=== PATIENT | female | born 1945 | race Two or more races ===

== ENCOUNTER 2024-11-14 13:59 | Emergency (ER) | payer OTHER ==
[~2024-11-14] VITALS: Ht 162.6 cm; Wt 59.0 kg
--- NOTE | 2024-11-14 15:46 | DVH ---
CLINICAL INDICATION: FALL TECHNIQUE: 3 v XY R KNEE 3V XRAY Comparison: None FINDINGS/IMPRESSION: : Orthopedic hardware is intact. No acute changes. Severe vascular calcification. Chondrocalcinosis lois barron IMPRESSION: 1. No acute changes
[2024-11-14 16:03] VITALS: BP 128/67; PULSE 73; RESP 24; TEMP 98; O2SAT 95
--- NOTE | 2024-11-14 16:07 | ED.PDOC ---
Musculoskeletal HPI Comments A 79 YEAR OLD FEMALE PRESENTS TO THE ED WITH COMPLAINT OF RIGHT KNEE PAIN STATUS POST FALL. PATIENT STATES SHE ACCIDENTALLY SLIPPED AND FELL AND HIT HER RIGHT KNEE ON THE GROUND YESTERDAY. PATIENT REPORTS SHE IS NOW EXPERIENCING RIGHT KNEE PAIN THAT IS WORSE WITH MOVEMENT. PATIENT DENIES INJURY, NECK INJURY, LOC, FEVER, CHILLS, SHORTNESS OF BREATH, CHEST PAIN, ABDOMINAL PAIN, NAUSEA, VOMITING, HEADACHE, OR OTHER COMPLAINTS. NO OTHER SYMPTOMS OR MODIFYING FACTORS AT THIS TIME. PATIENT IS ALERT, ORIENTED X 4, AND HAS STEADY GAIT. Chief Complaint: Lower Extremity Time Seen by MD: 15:02 Reviewed Notes: Nurses Notes, Medications, Allergies Home Meds Active Scripts Acetaminophen (Tylenol 8 Hour Arthritis) 650 Mg Tab, 650 MG PO TID, #30 TAB Prov:SARBJIT CRANE 11/14/24 Information Source: Patient Mode of Arrival: EMS Location: Right Extremity Location: Knee Timing: Days Prehospital treatment: None Severity: Moderate Bear Weight: Fully Pain: Moderate Mechanism: Blunt Trauma Circumstances: Fall Onset of Symptoms: After Trauma Symptoms: Pain DVT Risk Factors: NONE Last Tetanus: Unknown Associated signs and symptoms: Knee pain Past Medical History PAST MEDICAL HISTORY: Anxiety, DM, High Lipids, HTN Surgical History: Denies all surgeries 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 Family History Family History: Reviewed,noncontributory to illness Social History Smoker: Non-Smoker Alcohol: Denies ETOH Use Drugs: Denies Drug Use Lives In: Home Constitutional: reports: others (ANXIOUS ); denies: chills, diaphoresis, fatigue, fever, malaise, sweats, weakness EENTM: denies: blurred vision, double vision, ear bleeding, ear discharge, ear drainage, ear pain, ear ringing, eye pain, eye redness, hearing loss, mouth pain, mouth swelling, nasal discharge, nose bleeding, nose congestion, nose pain, photophobia, tearing, throat pain, throat swelling, voice changes, others Respiratory: denies: cough, hemoptysis, orthopnea, SOB at rest, shortness of breath, SOB with excertion, stridor, wheezing, others Cardiovascular: denies: chest pain, dizzy spells, diaphoresis, Dyspnea on exertion, edema, irregular heart beat, left arm pain, lightheadedness, palpitations, PND, syncope, others Gastrointestinal: denies: abdomen distended, abdominal pain, blood streaked bowels, constipated, diarrhea, dysphagia, difficulty swallowing, hematemesis, melena, nausea, poor appetite, poor fluid intake, rectal bleeding, rectal pain, vomiting, others Genitourinary: denies: abnormal vagina bleeding, burning, dyspareunia, dysuria, flank pain, frequency, hematuria, incontinence, pain, , vagina discharge, urgency, others Neurological: denies: dizziness, fainting, headache, left sided numbness, left sided weakness, numbness, paresthesia, pre-existing deficit, right sided numbness, right sided weakness, seizure, speech problems, tingling, tremors, weakness, others Musculoskeletal: reports: joint pain, joint swelling, others (RIGHT KNEE PAIN); denies: back pain, gout, muscle pain, muscle stiffness, neck pain Integumetry: denies: bruises, change in color, change in hair/nails, dryness, laceration, lesions, lumps, rash, wounds, others Allergic/Immunocompromised: denies: Difficulty Healing, Frequent Infections, Hives, Itching, others Hematologic/Lymphatic: denies: anemia, blood clots, easy bleeding, easy bruising, swollen glands, others Endocrine: denies: excessive hunger, excessive sweating, excessive thirst, excessive urination, flushing, intolerance to cold, intolerance to heat, unexplained weight gain, unexplained weight loss, others Psychiatric: denies: anxiety, bipolar disorder, depression, hopeless, panic disorder, schizophrenia, sleepless, suicidal, others All Other Systems: Reviewed and Negative Physical Exam General Appearance: No Apparent Distress, Normal, Other (ANXIOUS ) HEENT: Normal ENT Inspection, Pharynx Normal, TMs Normal Neck: Full Range of Motion, Non-Tender, Normal, Normal Inspection Respiratory: Chest Non-Tender, Lungs Clear, No Accessory Muscle Use, No Respiratory Distress, Normal Breath Sounds Cardiovascular: No Edema, No JVD, No Murmur, No Gallop, Normal Peripheral Pulses, Regular Rate/Rhythm Breast Exam: Deferred Gastrointestinal: No Organomegaly, Non Tender, No Pulsatile Mass, Normal Bowel Sounds, Soft Genitalia: Deferred Pelvic: Deferred Rectal: Deferred Extremities: Decreased range of motion, No calf tenderness, Normal capillary refill, No pedal edema, Tender (AND MILD SWELLING ON RIGHT LATERAL KNEE, NO BONY TENDERNESS AND DEFORMITY. ) Musculoskeletal : Apperance: Normal Neurologic: Alert, manager portable II-XII nml as Tested, No Motor Deficits, Normal Affect, Normal Mood, No Sensory Deficits Cerebellar Function: Normal Reflexes: Normal Skin: Dry, Normal Color, Warm Peripheral Pulses: 2+ carotid (R), 2+ carotid (L), 2+ dorsalis pedis (R), 2+ dorsalis pedis (L) Lymphatic: No Adenopathy Was a procedure done? Was a procedure done?: No Differential Diagnosis EXT Differential Diagnosis: Fracture, Sprain, Dislocation, DJD, Contusion, Strain, Arthritis, Bursitis X-Ray, Labs, Meds, VS Vital Signs Date Time Temp Pulse Resp B/P (MAP) Pulse Ox O2 Delivery O2 Flow Rate FiO2 11/14/24 16:03 98.0 73 24 128/67 (87) 95 98.0 11/14/24 16:03 73 24 95 Room Air 11/14/24 14:31 98.0 73 24 128/67 (87) 95 Current Medications Medications (Trade) Dose Ordered Sig/Gregg Route Start Time Stop Time Status Last Admin Acetaminophen/ Hydrocodone Bitart ([place] 5/325MG Tab) 1 tab ONCE ONCE PO 11/14/24 16:30 11/14/24 16:31 DC 11/14/24 16:30 CLINICAL INDICATION: FALL TECHNIQUE: 3 v XY R KNEE 3V XRAY Comparison: None FINDINGS/IMPRESSION: : Orthopedic hardware is intact. No acute changes. Severe vascular calcification. Chondrocalcinosis laterally IMPRESSION: 1. No acute changes ATED BY: JOSE SOFIA MD DICTATED DATE/TIME: 11/14/24 154 SIGNED BY: JOSE SOFIA MD SIGNED DATE/TIME: 11/14/241542 CC: X-Ray, Labs, Meds, VS Comment EXTERNAL MEDICAL RECORDS REVIEWED: [NONE] INDEPENDENT HISTORIANS: [NONE] SOCIAL DETERMINANTS OF HEALTH: [NONE] LABS ORDERED: NONE REVIEWED AND INTERPRETED RESULTS: NONE IMAGING ORDERED: XR KNEE RT TREATMENTS ORDERED: TYLENOL 1G PO, ALPHONSO WRAP APPLIED TO PATIENT'S RIGHT KNEE PROCEDURES PERFORMED: NONE CRITICAL CARE TIME: NONE I HAVE DISCUSSED THE PATIENT WITH THE ATTENDING PHYSICIAN DR. SNYDER AND HE AGREES WITH THE PATIENT'S PLAN OF CARE AND DISPOSITION. BASED ON HISTORY OF PRESENT ILLNESS, AND PHYSICAL EXAM, PATIENT WILL BE DISCHARGED HOME. DISCUSSED PLAN FOR DISCHARGE HOME WITH RX [TYLENOL]. MEDICATION WARNINGS GIVEN. SHARED DECISION MAKING: PATIENT INSTRUCTED TO FOLLOW UP WITH PRIMARY CARE PROVIDER IN 1-2 DAYS FOR RE-EVALUATION OF SYMPTOMS. PATIENT VERBALIZES UNDERSTANDING TO RETURN TO ED FOR NEW OR WORSENING SYMPTOMS OR IF FOLLOW UP WITH PCP CANNOT BE OBTAINED. PATIENT FEELS COMFORTABLE GOING HOME AT THIS TIME. ALL QUESTIONS ADDRESSED AT TIME OF DISCHARGE. Images Reviewed?: Images reviewed and evaluated by me Time of 1ST Reevaluation: 16:44 Reevaluation 1ST: Improved Patient Education/Counseling: Diagnosis, Treatment, Need For Follow Up Family Education/Counseling: Diagnosis, Treatment, Need For Follow Up Medical Screening: No EMC Exist At This Time Departure 1 Departure Time of Disposition: 16:44 Impression: Primary Impression: Sprain of right knee Qualified Codes: S83.8X1A - Sprain of other specified parts of right knee, initial encounter Additional Impressions: Chondrocalcinosis of right knee Status post fall Disposition: 01 HOME / SELF CARE / HOMELESS Condition: Stable Additional Instructions: FOLLOW-UP WITH PCP IN 1 TO 2 DAYS FOR MRI STUDY. TAKE MEDICATIONS PRESCRIBED. RETURN TO ED FOR ANY NEW OR WORSENING SYMPTOMS. e-Prescriptions Acetaminophen (Tylenol 8 Hour Arthritis) 650 Mg Tab 650 MG PO TID, #30 TAB Prov: SARBJIT CRANE 11/14/24 Discharged With: Self, Relative Critical Care Note Critical Care Time?: No Stability Stability form required: No I personally scribed for SARBJIT CRANE ([email or web address]) on 11/14/24 at 16:07. Electronically submitted by Ben Lee (ULI). I personally scribed for SARBJIT CRANE ([email or web address]) on 11/14/24 at 16:33. Electronically submitted by Ben Lee (ULI). SARBJIT CRANE Nov 14, 2024 16:07
[2024-11-14] MEDS: HYDROcodone-ACET 5/325MG TAB PO ONE (16:30)
[2024-11-14] MEDS ORDERED: ACET-1080 PO (16:34)
== END 2024-11-14 16:38 | disposition home or self-care (01) ==
LOC: EDBD 13:59 → ER 13:59
DX: S83.91XA Sprain of unspecified site of right knee, initial encounter (principal); M11.261 Other chondrocalcinosis, right knee; E11.9 Type 2 diabetes mellitus without complications; E78.5 Hyperlipidemia, unspecified; I10 Essential (primary) hypertension; W01.0XXA Fall on same level from slipping, tripping and stumbling without subsequent striking against object, initial encounter; Y93.89 Activity, other specified; Y92.89 Other specified places as the place of occurrence of the external cause; Y99.8 Other external cause status
CPT/HCPCS: 73562

== ENCOUNTER 2025-01-01 15:43 | Inpatient (IN) | payer OTHER ==
[~2025-01-01] VITALS: Ht 162.6 cm; Wt 65.7 kg
[~2025-01-01 15:43] MED LIST: ACET-1080 PO
--- NOTE | 2025-01-01 16:48 | DVH ---
CLINICAL INDICATION: , trauma, pain FALL TECHNIQUE: XY L ANKLE 3 VIEW Comparison: None FINDINGS/IMPRESSION: : Displaced fracture of the distal fibula with intra-articular extension. Displaced fracture of the medial malleolus. There is disruption of the ankle mortise. Diffuse osteopenia. Diffuse soft-tissue swelling.
--- NOTE | 2025-01-01 17:01 | ED.PDOC ---
Aliya. trauma (HPI) HPI Comments 79 y/o F, BIBA with PMHX of anxiety, DM, HLD, and HTN presents to the ED for CC of s/p mechanical fall. Patient states, that she experience a fall x1week ago. Patient relays, that following trauma she has been unable to bear weight onto her left leg and her leg has progressively turned outward. Patient endorses, sue t she lives alone and her neighbor has been helping her with her day to day activities. Patient denies head injury, LOC, musculoskeletal pain, or open wounds. No other symptoms or modifying factors at this time. Chief Complaint: Lower Extremity Time Seen by MD: 16:30 Primary Care Provider: ANTONINO Arrieta notes: Nurses Notes, Medications, Allergies Allergies: Coded Allergies: NO KNOWN ALLERGIES (Unverified , 01/01/25) Home Meds Active Scripts Acetaminophen (Tylenol 8 Hour Arthritis) 650 Mg Tab, 650 MG PO TID, #30 TAB Prov:ROSA MARIASARBJIT 11/14/24 Information Source: Patient, Emergency Med Personnel Mode of Arrival: EMS Severity: Moderate Timing: Hours Duration: Since onset Prehospital treatment: None Location: (L) Ankle Location of laceration: None Mechanism: Fall Past Medical History PAST MEDICAL HISTORY: Anxiety, DM, High Lipids, HTN Surgical History: Denies all surgeries 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 ELECTRO MECHANICAL DESIGNER History Family History Family History: Reviewed,noncontributory to illness Social History Smoker: Non-Smoker Alcohol: Denies ETOH Use Drugs: Denies Drug Use Lives In: Home Constitutional: denies: chills, diaphoresis, fatigue, fever, malaise, sweats, weakness, others EENTM: denies: blurred vision, double vision, ear bleeding, ear discharge, ear drainage, ear pain, ear ringing, eye pain, eye redness, hearing loss, mouth pain, mouth swelling, nasal discharge, nose bleeding, nose congestion, nose pain, photophobia, tearing, throat pain, throat swelling, voice changes, others Respiratory: denies: cough, hemoptysis, orthopnea, SOB at rest, shortness of breath, SOB with excertion, stridor, wheezing, others Cardiovascular: denies: chest pain, dizzy spells, diaphoresis, Dyspnea on exertion, edema, irregular heart beat, left arm pain, lightheadedness, palpitations, PND, syncope, others Gastrointestinal: denies: abdomen distended, abdominal pain, blood streaked bowels, constipated, diarrhea, dysphagia, difficulty swallowing, hematemesis, melena, nausea, poor appetite, poor fluid intake, rectal bleeding, rectal pain, vomiting, others Genitourinary: denies: abnormal vagina bleeding, burning, dyspareunia, dysuria, flank pain, frequency, hematuria, incontinence, pain, , vagina discharge, urgency, others Neurological: denies: dizziness, fainting, headache, left sided numbness, left sided weakness, numbness, paresthesia, pre-existing deficit, right sided numbness, right sided weakness, seizure, speech problems, tingling, tremors, weakness, others Musculoskeletal: reports: others (left leg pain); denies: back pain, gout, joint pain, joint swelling, muscle pain, muscle stiffness, neck pain Integumetry: denies: bruises, change in color, change in hair/nails, dryness, laceration, lesions, lumps, rash, wounds, others Allergic/Immunocompromised: denies: Difficulty Healing, Frequent Infections, Hives, Itching, others Hematologic/Lymphatic: denies: anemia, blood clots, easy bleeding, easy bruising, swollen glands, others Endocrine: denies: excessive hunger, excessive sweating, excessive thirst, excessive urination, flushing, intolerance to cold, intolerance to heat, unexplained weight gain, unexplained weight loss, others Psychiatric: denies: anxiety, bipolar disorder, depression, hopeless, panic d isorder, schizophrenia, sleepless, suicidal, others All Other Systems: Reviewed and Negative Physical Exam General Appearance: No Apparent Distress, Normal HEENT: Normal ENT Inspection, Pharynx Normal, TMs Normal Neck: Full Range of Motion, Non-Tender, Normal, Normal Inspection Respiratory: Chest Non-Tender, Lungs Clear, No Accessory Muscle Use, No Respiratory Distress, Normal Breath Sounds Cardiovascular: No Edema, No JVD, No Murmur, No Gallop, Normal Peripheral Pulses, Regular Rate/Rhythm Breast Exam: Deferred Gastrointestinal: No Organomegaly, Non Tender, No Pulsatile Mass, Normal Bowel Sounds, Soft Genitalia: Deferred Pelvic: Deferred Rectal: Deferred Extremities: No calf tenderness, Normal capillary refill, Normal inspection Musculoskeletal : Location: Left Extremity Location: Ankle Apperance: Swelling (medial ankle), Tenderness (to palpation), Other (DISTAL CMS INTACT ) Neurologic: Alert, greens tier II-XII nml as Tested, No Motor Deficits, Normal Affect, Normal Mood, No Sensory Deficits Cerebellar Function: Normal Reflexes: Normal Skin: Dry, Normal Color, Warm Lymphatic: No Adenopathy Was a procedure done? Was a procedure done?: No Differential Diagnosis Multiple Trauma: Fractures X-Ray, Labs, Meds, VS Vital Signs Date Time Temp Pulse Resp B/P (MAP) Pulse Ox O2 Delivery O2 Flow Rate FiO2 01/01/25 16:00 98.7 116 18 100/45 (63) 95 Lab Test 01/01/25 16:56 Range/Units White Blood Count 11.6 H 4.4-10.8 10^3/uL Red Blood Count 4.48 4.0-5.20 10^6/uL Hemoglobin 13.9 12.2-16.2 g/dL Hematocrit 41.9 36.0-46.0 % Mean Corpuscular Volume 93.6 80.0-100.0 fL Mean Corpuscular Hemoglobin 30.9 28.0-32.0 pg Mean Corpuscular Hemoglobin Concent 33.1 32.0-36.0 g/dL Red Cell Distribution Width 12.8 11.8-14.3 % Platelet Count 335 140-450 10^3/uL Mean Platelet Volume 7.4 6.9-10.8 fL Neutrophils (%) (Auto) 82.7 H 37.0-80.0 % Lymphocytes (%) (Auto) 8.0 L 10.0-50.0 % Monocytes (%) (Auto) 8.6 0.0-12.0 % Eosinophils (%) (Auto) 0.4 0.0-7.0 % Basophils (%) (Auto) 0.3 0.0-2.0 % Neutrophils # (Auto) 9.6 H 1.6-8.6 10 ^3/uL Lymphocytes # (Auto) 0.9 0.4-5.4 10 ^3/uL Monocytes # (Auto) 1.0 0-1.3 10 ^3/uL Eosinophils # (Auto) 0 0-0.8 10 ^3/uL Basophils # (Auto) 0 0-0.2 10 ^3/uL Nucleated Red Blood Cells 0.1 % Sodium Level 134 L 136-145 mmol/L Potassium Level 4.4 3.5-5.1 mmol/L Chloride Level 103 98-107 mmol/L Carbon Dioxide Level 25 20-31 mmol/L Anion Gap 6 5-15 Blood Urea Nitrogen 26 H 9-23 mg/dL Creatinine 1.04 H 0.550-1.02 mg/dL Glomerular Filtration Rate Calc 55 >90 mL/min BUN/Creatinine Ratio 25.0 H 10.0-20.0 Serum Glucose 290 H 74-106 mg/dL Calcium Level 10.0 8.7-10.4 mg/dL Total Bilirubin 0.4 0.2-1.0 mg/dL Aspartate Amino Transferase (AST) 18 13-40 U/L Alanine Aminotransferase (ALT) 23 7-40 U/L Alkaline Phosphatase 103 46-116 U/L Total Protein 7.3 5.7-8.2 g/dL Albumin 4.6 3.2-4.8 g/dL [place] [id number] Ph: [phone] DIAGNOSTIC IMAGING Diagnostic Imaging Report : [id number] Signed PATIENT: ROSEMARIE MORA ACCT: [id number] UNIT: [id number] : 1945 LOC: ER ROOM / BED: / AGE / SEX: 79 / F ADM STATUS: REG ER SERVICE 1613 ORDERING PHYSICIAN: PHILLIP WARREN PROCEDURE(s): LANKL - L ANKLE 3 VIEW REASON: FALL ORDER NUMBER(s): [id number], ACCESSION NUMBER(s): [id number] CLINICAL INDICATION: , trauma, pain FALL TECHNIQUE: XY L ANKLE 3 VIEW Comparison: None FINDINGS/IMPRESSION: : Displaced fracture of the distal fibula with intra-articular extension. Displaced fracture of the medial malleolus. There is disruption of the ankle mortise. Diffuse osteopenia. Diffuse soft-tissue swelling. ATED BY: MARSHALL MALDONADO MD DICTATED DATE/TIME: 01/01/251641 SIGNED BY: MARSHALL MALDONADO MD SIGNED DATE/TIME: 01/01/251641 CC: [place] [id number] Ph: [phone] DIAGNOSTIC IMAGING Diagnostic Imaging Report : [id number] Signed PATIENT: ROSEMARIE MORA ACCT: [id number] UNIT: [id number] : 1945 LOC: ER ROOM / BED: / AGE / SEX: 79 / F ADM STATUS: REG ER SERVICE 1644 ORDERING PHYSICIAN: PHILLIP WARREN PROCEDURE(s): CXR1 - CHEST XRAY 1 VIEW REASON: PRE OP ORDER NUMBER(s): [id number], ACCESSION NUMBER(s): [id number] CHEST RADIOGRAPH Indication: PRE OP Technique: Single frontal view of the chest was obtained Comparison: None FINDINGS: Lines and Tubes: None Lungs: No focal consolidation. Pleura: No effusion. No pneumothorax. Cardiomediastinal contours: Unremarkable Bones: No acute osseous abnormality. IMPRESSION: 1. No acute cardiopulmonary disease. ATED BY: JOSE DASILVA Jr., DO DICTATED DATE/TIME: 01/01/251733 SIGNED BY: JOSE DASILVA Jr., SIGNED DATE/TIME: 01/01/251733 CC: X-Ray, Labs, Meds, VS Comment X-RAY OF THE LEFT ANKLE: FINDINGS/IMPRESSION: : Displaced fracture of the distal fibula with intra-articular extension. Displaced fracture of the medial malleolus. There is disruption of the ankle mortise. Diffuse osteopenia. Diffuse soft-tissue swelling. ENT WILL BE ADMITTED OR FRACTURE OF THE LEFT ANKLE PENDING ORTHOPEDIC EVALUATION PATIENT MAY ALSO BENEFIT FROM SOCIAL SERVICE CONSULT SHE LIVES ALONE AND SHE WILL NOT BE ABLE TO AMBULATE ON HER OWN AT HOME. PATIENT PLACED IN POSTERIOR SHORT-LEG SPLINT SPOKE WITH DR. [facility]Z [facility] ON-CALL, MADE AWARE OF CASE, HE AGREES WITH THE ADMISSION AND PLAN Time of 1ST Reevaluation: 17:00 Reevaluation 1ST: Unchanged Patient Education/Counseling: Diagnosis, Treatment Family Education/Counseling: No Family Present Departure 1 Departure Time of Disposition: 18:13 Impression: Primary Impression: Closed left ankle fracture Qualified Codes: S82.892A - Other fracture of left lower leg, initial encounter for closed fracture Disposition: ADMITTED INPATIENT Condition: Stable Discharged With: Self Critical Care Note Critical Care Time?: No Stability Stability form required: No Heart Score Heart Score: Heart Score Response (Comments) Value History N/A 0 EKG N/A 0 Age N/A 0 Risk Factors N/A 0 Troponin N/A 0 Total 0 I personally scribed for WARREN,CHRISTOPHER E TEACHER SELECTION SPECIALIST ([email or web address]) on 01/01/25 at 17:00. Electronically submitted by Janel Verdugo ([employer]). I personally scribed for WARREN,CHRISTOPHER E TEACHER SELECTION SPECIALIST ([email or web address]) on 01/01/25 at 17:56. Electronically submitted by Janel Verdugo ([employer]). I personally scribed for WARREN,CHRISTOPHER E TEACHER SELECTION SPECIALIST ([email or web address]) on 01/01/25 at 17:56. Electronically submitted by Janel Verdugo ([employer]). WARREN,CHRISTOPHER E TEACHER SELECTION SPECIALIST Jan 01, 2025 17:00
[2025-01-01 17:03] LABS: Basophils # (auto) 0 10 ^3/uL (0-0.2); Basophils % (auto) 0.3 % (0.0-2.0); Eosinophils # (auto) 0 10 ^3/uL (0-0.8); Eosinophils % (auto) 0.4 % (0.0-7.0); Hematocrit 41.9 % (36.0-46.0); Hemoglobin 13.9 g/dL (12.2-16.2); Lymphocytes # (auto) 0.9 10 ^3/uL (0.4-5.4); Mean Corpuscular Hemoglobin 30.9 pg (28.0-32.0); Mean Corpuscular Hgb Conc. 33.1 g/dL (32.0-36.0); Mean Corpuscular Volume 93.6 fL (80.0-100.0); Monocytes % (auto) 8.6 % (0.0-12.0); Neutrophils # (auto) 9.6 10 ^3/uL (1.6-8.6); Neutrophils % (auto) 82.7 % (37.0-80.0); Nucleated Red Blood Cells % 0.1 %; Platelet Count (auto) 335 10^3/uL (140-450); Red Blood Cells 4.48 10^6/uL (4.0-5.20); Red Cell Distribution Width 12.8 % (11.8-14.3); White Blood Cell 11.6 10^3/uL (4.4-10.8)
[2025-01-01 17:26] LABS: Alanine Aminotransferase 23 U/L (7-40); Albumin 4.6 g/dL (3.2-4.8); Alkaline Phosphatase 103 U/L (46-116); Anion Gap 6 (5-15); Aspartate Aminotransferase 18 U/L (13-40); Bilirubin, Total 0.4 mg/dL (0.2-1.0); Carbon Dioxide 25 mmol/L (20-31); Chloride 103 mmol/L (98-107); Potassium 4.4 mmol/L (3.5-5.1); Total Protein 7.3 g/dL (5.7-8.2)
[2025-01-01 17:36] LABS: Blood Urea Nitrogen 26 mg/dL (9-23); Glucose 290 mg/dL (74-106); Sodium 134 mmol/L (136-145)
--- NOTE | 2025-01-01 17:36 | DVH ---
CHEST RADIOGRAPH Indication: PRE OP Technique: Single frontal view of the chest was obtained Comparison: None FINDINGS: Lines and Tubes: None Lungs: No focal consolidation. Pleura: No effusion. No pneumothorax. Cardiomediastinal contours: Unremarkable Bones: No acute osseous abnormality. IMPRESSION: 1. No acute cardiopulmonary disease.
[2025-01-01] MEDS ORDERED: DOCUSATE SOD 100 MG CAP PO PRN (21:00)
[2025-01-01] MEDS ORDERED: DEXTROSE (50%) 50ML SYRG IV PRN (21:00)
--- NOTE | 2025-01-01 21:15 | DVH ---
INDICATION: surgery planning COMPARISON: None TECHNIQUE: CT of the rightleft ankle was performed without contrast. Volume transverse images were ob tained and reconstructed in multiple planes using bone and soft tissue algorithms. CONTRAST: None Radiation Dose: DLP [ 7.75 ] mGy.cm; CTDI [ 209.97 ] mGy. FINDINGS: There are dense calcifications in the anterior tibialis, posterior tibialis in the peroneal arteries. Patient has a comminuted fracture of the medial malleolus oblique fracture of the lateral malleolus and a lateral posterior malleolus fracture. Midfoot bones are normal there is also lateral subluxatio n of the talus. IMPRESSION: Trimalleolar fracture with lateral subluxation of the talus. 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
[2025-01-01 21:40] VITALS: PULSE 83; RESP 18; O2SAT 98
[2025-01-01] MEDS: SODIUM CHLORIDE 0.9% 1,000 ML IV SCH (21:47)
[2025-01-01] MEDS: ONDANSETRON HCL 4 MG/2 ML VIAL IV ONE (21:47)
[2025-01-01] MEDS: cefTRIAXone 1GM/50ML D5W 50 ML IV ONE (21:47)
[2025-01-01] MEDS: MORPHINE SULFATE 4 MG/ML SYR/VIAL IV ONE (21:48)
[2025-01-01] MEDS: ACCU-CHEK COMFORT CURVE STRIP VI SCH (22:19)
[2025-01-01] MEDS: InsuLIN REG 1unit/0.01ml Soln (100units/ml) SC SCH (22:24)
--- NOTE | 2025-01-01 23:02 | DVHHP2 ---
History of Present Illness Reason for Visit: Closed left ankle fracture History of Present Illness The patient is a 79-year-old female with past medical history of anxiety, DM, hyperlipidemia, and hypertension who presented to [facility] ED for evaluation of mechanical fall at home. Patient reports she fell 1 week ago, sustained left ankle pain, unable to bear weight her left leg, swollen, progressively turned outward, getting worse that prompted this visit. Patient was seen and evaluated in the ED, laboratory data shows WBC 11.6, platelets 335, sodium 134, potassium 4.4, BUN 26, creatinine 1.04, GFR 55, glucose 290. Left ankle x-ray revealing displaced fracture of the distal fibula with intra- articular extension, displaced fracture of the medial malleolus, diffuse osteopenia, diffuse soft tissue swelling. Please see medication orders section in the computer. On my assessment, patient denied chest pain, no headache, no dizziness, no loss of consciousness, no shortness of breaths, no nausea, no vomiting, no fever, no chills. Patient was admitted for further evaluation and medical management. Past Medical History Anxiety, DM, High Lipids, HTN Past Surgical History Denies all surgeries Family History Reviewed, noncontributory to the management of this case. Past Social History The patient lives at home, denies smoking, alcohol or illicit drugs abuse. Review of Systems Constitutional: Yes: Weakness; No: Fever, Chills, Sweats, Malaise, Other Eyes: No: Pain, Vision change, Conjunctivae inflammation, Eyelid inflammation, Other, Redness ENT: No: Ear pain, Ear discharge, Nose pain, Nose discharge, Nose congestion, Mouth pain, Mouth swelling, Throat pain, Throat swelling, Other Respiratory: No: Cough, Dry, Shortness of breath, SOB with excertion, Wheezing, Hemoptysis, Pleuritic Pain, Sputum, Wheezing, Other Cardiovascular: No: Chest Pain, Palpitations, Orthopnea, Paroxysmal Noc. Dyspnea, Edema, Lt Headedness, Other Gastrointestinal: No: Nausea, Vomiting, Abdominal Pain, Diarrhea, Constipation, Melena, Hematochezia, Other Genitourinary: No Dysuria, No Frequency, No Incontinence, No Hematuria, No Retention, No Other Musculoskeletal: other (left leg pain); No: neck pain, shoulder pain, arm pain, back pain, hand pain, leg pain, foot pain Skin: No: Rash, Lesions, Jaundice, Bruising, Other Neurological: No: Weakness, Numbness, Incoordination, Change in speech, Confusion, Seizures, Other Allergies: Coded Allergies: NO KNOWN ALLERGIES (Unverified , 01/01/25) Medications Current Medications Medications Dose Ordered Sig/Gregg Route Start Time Stop Time Status Last Admin Dose Admin Ceftriaxone Sodium 50 ml @ 100 mls/hr DAILY@09 IV 01/02/25 09:00 Diagnostic Test (Pha) 1 strip ACHS 01/01/25 22:00 01/01/25 22:19 1 STRIP Insulin Human Regular HS SC 01/01/25 22:00 01/01/25 22:24 3 UNITS Insulin Human Regular AC SC 01/02/25 07:00 Dextrose 50 ml UD PRN IV 01/01/25 21:00 Sodium Chloride 1,000 ml @ 60 mls/hr [id number] IV 01/01/25 21:00 01/01/25 21:47 60 MLS/HR Acetaminophen/ Hydrocodone Bitart 1 tab Q4HP PRN PO 01/01/25 21:00 Ondansetron HCl 4 mg Q4HP PRN IV 01/01/25 21:00 Docusate Sodium 100 mg BIDPRN PRN PO 01/01/25 21:00 Enoxaparin Sodium 40 mg DAILY SC 01/02/25 10:00 Acetaminophen 650 mg Q6HP PRN PO 01/01/25 21:00 Exam Vital Signs Vital Signs Date Time Temp Pulse Resp B/P (MAP) Pulse Ox O2 Delivery O2 Flow Rate FiO2 01/01/25 22:35 Room Air* 0 21 01/01/25 22:35 98.0 86 18 101/68 (79) 98 98.0 General Appearance: Alert, Oriented X3, Cooperative, No acute distress HEENT: Atraumatic, PERRLA, EOMI, Mucous membr. moist/pink Respiratory: Clear to auscultation, Normal air movement Cardiovascular: Regular rate, Normal S1, Normal S2, No murmurs Abdominal: Normal bowel sounds, Soft, No tenderness, No hepatospenomegaly, No masses Extremities: No clubbing, No cyanosis, No edema, Normal pulses, Other (Reports left ankle tenderness) Skin: No rashes, No breakdown, No significant lesion Neuro: Normal speech, Normal tone, Sensation intact, Cranial nerves 3-12 NL, Reflexes 2+, Other (Generalized weakness) Psych/Mental Status: Mental status NL, Mood NL Labs/Xrays Labs Test 01/01/25 22:15 01/01/25 16:56 Range/Units POC Glucose 186 H 70-106 mg/dl White Blood Count 11.6 H 4.4-10.8 10^3/uL Red Blood Count 4.48 4.0-5.20 10^6/uL Hemoglobin 13.9 12.2-16.2 g/dL Hematocrit 41.9 36.0-46.0 % Mean Corpuscular Volume 93.6 80.0-100.0 fL Mean Corpuscular Hemoglobin 30.9 28.0-32.0 pg Mean Corpuscular Hemoglobin Concent 33.1 32.0-36.0 g/dL Red Cell Distribution Width 12.8 11.8-14.3 % Platelet Count 335 140-450 10^3/uL Mean Platelet Volume 7.4 6.9-10.8 fL Neutrophils (%) (Auto) 82.7 H 37.0-80.0 % Lymphocytes (%) (Auto) 8.0 L 10.0-50.0 % Monocytes (%) (Auto) 8.6 0.0-12.0 % Eosinophils (%) (Auto) 0.4 0.0-7.0 % Basophils (%) (Auto) 0.3 0.0-2.0 % Neutrophils # (Auto) 9.6 H 1.6-8.6 10 ^3/uL Lymphocytes # (Auto) 0.9 0.4-5.4 10 ^3/uL Monocytes # (Auto) 1.0 0-1.3 10 ^3/uL Eosinophils # (Auto) 0 0-0.8 10 ^3/uL Basophils # (Auto) 0 0-0.2 10 ^3/uL Nucleated Red Blood Cells 0.1 % Sodium Level 134 L 136-145 mmol/L Potassium Level 4.4 3.5-5.1 mmol/L Chloride Level 103 98-107 mmol/L Carbon Dioxide Level 25 20-31 mmol/L Anion Gap 6 5-15 Blood Urea Nitrogen 26 H 9-23 mg/dL Creatinine 1.04 H 0.550-1.02 mg/dL Glomerular Filtration Rate Calc 55 >90 mL/min BUN/Creatinine Ratio 25.0 H 10.0-20.0 Serum Glucose 290 H 74-106 mg/dL Calcium Level 10.0 8.7-10.4 mg/dL Total Bilirubin 0.4 0.2-1.0 mg/dL Aspartate Amino Transferase (AST) 18 13-40 U/L Alanine Aminotransferase (ALT) 23 7-40 U/L Alkaline Phosphatase 103 46-116 U/L Total Protein 7.3 5.7-8.2 g/dL Albumin 4.6 3.2-4.8 g/dL PATIENT: ROSEMARIE MORA ACCT: [id number] UNIT: [id number] : 1945 LOC: ER ROOM / BED: / AGE / SEX: 79 / F ADM STATUS: REG ER SERVICE 49 ORDERING PHYSICIAN: DOMITILA JIMENEZ MD PROCEDURE(s): LANCT - CT L ANKLE WO CONTRAST REASON: surgery planning ORDER NUMBER(s): [id number], ACCESSION NUMBER(s): [id number] INDICATION: surgery planning COMPARISON: None TECHNIQUE: CT of the rightleft ankle was performed without contrast. Volume transverse images were obtained and reconstructed in multiple planes using bone and soft tissue algorithms. CONTRAST: None Radiation Dose: DLP [ 7.75 ] mGy.cm; CTDI [ 209.97 ] mGy. FINDINGS: There are dense calcifications in the anterior tibialis, posterior tibialis in the peroneal arteries. Patient has a comminuted fracture of the medial malleolus oblique fracture of the lateral malleolus and a lateral posterior malleolus fracture. Midfoot bones are normal there is also lateral subluxation of the talus. IMPRESSION: Trimalleolar fracture with lateral subluxation of the talus. Patient also has significant atherosclerotic disease in the arteries of the [id number] lower extremity. ORDERING PHYSICIAN: PHILLIP WARREN PROCEDURE(s): LANKL - L ANKLE 3 VIEW REASON: FALL ORDER NUMBER(s): [id number], ACCESSION NUMBER(s): [id number] CLINICAL INDICATION: trauma, pain FALL TECHNIQUE: XY L ANKLE 3 VIEW Comparison: None FINDINGS/IMPRESSION: Displaced fracture of the distal fibula with intra-articular extension. Displaced fracture of the medial malleolus. There is disruption of the ankle mortise. Diffuse osteopenia. Diffuse soft-tissue swelling. ORDERING PHYSICIAN: PHILLIP WARREN PROCEDURE(s): CXR1 - CHEST XRAY 1 VIEW REASON: PRE OP ORDER NUMBER(s): [id number], ACCESSION NUMBER(s): [id number] CHEST RADIOGRAPH Indication: PRE OP Technique: Single frontal view of the chest was obtained Comparison: None FINDINGS: Lines and Tubes: None Lungs: No focal consolidation. Pleura: No effusion. No pneumothorax. Cardiomediastinal contours: Unremarkable Bones: No acute osseous abnormality. IMPRESSION: 1. No acute cardiopulmonary disease. Assessment/Plan Assessment/Plan Closed left ankle fracture Generalized weakness Leukocytosis, unspecified Other fracture of left lower leg, initial encounter for closed fracture Plan 1. Admit to telemetry unit 2. Breathing treatment 3. Pain control management 4. IV antibiotic management 5. Management of fluids and electrolytes 6. Consultation for orthopedic 7. Diagnostic test left ankle x-ray 8. DVT prophylaxis-on Lovenox 9. Repeat labs CBC, CMP in a.m. 10. Home medication reviewed and reconciled 11. Continue with current medical management 12. Treatment plan discussed with patient and RN. Patient verbalized understanding. Plan discussed with: Patient, Other (RN) My Orders Orders - JAS BARTON DNP Procedure Category Date Status Time Consistent DIET 01/02/25 Transmitted Carb(Ccho)Diabetes Breakfast Ceftriaxone 1gm/50ml PHA 01/02/25 In Process D5w (Rocephin) 09:00 * Orthopedic Consult CONS 01/01/25 Transmitted 20:48 Glucose Blood PHA 01/01/25 In Process (Accu-Chek Comfort 22:00 Insulin R (Human) PHA 01/01/25 In Process (Insulin R) 22:00 Insulin R (Human) PHA 01/02/25 In Process (Insulin R) 07:00 Dextrose 50% Syringe PHA 01/01/25 In Process 21:00 Allergies KRISTIN 01/01/25 In Process 20:48 Code Status CODE 01/01/25 Transmitted 20:48 Sodium Chloride 0.9% PHA 01/01/25 In Process 21:00 Oxygen Per Hour RT 01/01/25 Transmitted 20:48 Hydrocodone-Acet PHA 01/01/25 In Process 5/325mg Tab ([place] 21:00 Ondansetron Hcl PHA 01/01/25 In Process (Zofran) 21:00 Docusate Sodium PHA 01/01/25 In Process Capsule (Colace 21:00 Enoxaparin Sodium PHA 01/02/25 In Process (Lovenox) 10:00 Fall Risk Precautions KRISTIN 01/01/[address] 20:48 Complete Blood Count LAB 01/02/25 Verified 04:00 Comprehensive LAB 01/02/25 Verified Metabolic Panel 04:00 Condition: Serious KRISTIN 01/01/25 In Process 20:48 Acetaminophen Tablet PHA 01/01/25 In Process (Tylenol Tablet) 21:00 Bedrest With Bathroom KRISTIN 01/01/25 In Process Privileg 20:48 Sequential KRISTIN 01/01/25 In Process Compression Device Problem List: (1) Closed left ankle fracture (2) Generalized weakness (3) Leukocytosis, unspecified (4) Other fracture of left lower leg, initial encounter for closed fracture Date of Service: Jan 01, 2025 Billing Provider: JAS BARTON DNP Common Visit Codes: [id number] INP/OBS CARE (HIGH) JAS BARTON DNP Jan 01, 2025 23:02
[2025-01-01] MEDS ORDERED: MORPHINE SULFATE INJ 2 MG/ml SYRG IV PRN (23:15)
[2025-01-01] MEDS ORDERED: NITROGLYCERIN 0.4 MG SL TAB SL PRN (23:15)
[2025-01-01] MEDS: HYDROcodone-ACET 5/325MG TAB PO PRN (23:17)
[2025-01-02] VITALS (7 sets, daily range): BP systolic 102–123; BP diastolic 47–65; PULSE 70–85; RESP 16–20; TEMP 98.1–98.4; O2SAT 95–99
[2025-01-02 00:43] LABS: Urine Bacteria None Seen /hpf (None Seen)
[2025-01-02 01:03] LABS: Urine Blood Negative /uL (Negative); Urine Budding Yeast MANY /hpf (None Seen); Urine Clarity Turbid (Clear); Urine Color Yellow (Yellow); Urine Mucus FEW (None Seen); Urine Protein, UAD TRACE (Negative); Urine Specific Gravity 1.022 (1.001-1.035); Urine Squamous Epithelial Cell FEW /hpf (<5); Urine Urobilinogen 2 mg/dL (Negative); Urine WBC 5 /HPF (0-5); Urine pH 5.5 (5.0-9.0)
[2025-01-02 05:39] LABS: Basophils # (auto) 0.1 10 ^3/uL (0-0.2); Basophils % (auto) 0.5 % (0.0-2.0); Eosinophils # (auto) 0.1 10 ^3/uL (0-0.8); Eosinophils % (auto) 0.9 % (0.0-7.0); Hematocrit 35.7 % (36.0-46.0); Hemoglobin 12.4 g/dL (12.2-16.2); Mean Corpuscular Hemoglobin 32.2 pg (28.0-32.0); Mean Corpuscular Hgb Conc. 34.6 g/dL (32.0-36.0); Monocytes # (auto) 1.2 10 ^3/uL (0-1.3); Monocytes % (auto) 10.6 % (0.0-12.0); Neutrophils # (auto) 8.2 10 ^3/uL (1.6-8.6); Platelet Count (auto) 292 10^3/uL (140-450); Red Blood Cells 3.84 10^6/uL (4.0-5.20); Red Cell Distribution Width 12.9 % (11.8-14.3); White Blood Cell 11.6 10^3/uL (4.4-10.8)
[2025-01-02 05:54] LABS: Alanine Aminotransferase 18 U/L (7-40); Albumin 4.1 g/dL (3.2-4.8); Alkaline Phosphatase 85 U/L (46-116); Anion Gap 9 (5-15); BUN/Creatinine Ratio 26.9 (10.0-20.0); Bilirubin, Total 0.5 mg/dL (0.2-1.0); Calcium 9.9 mg/dL (8.7-10.4); Carbon Dioxide 22 mmol/L (20-31); Chloride 105 mmol/L (98-107); Potassium 4.4 mmol/L (3.5-5.1); Total Protein 6.7 g/dL (5.7-8.2)
[2025-01-02 06:19] LABS: Aspartate Aminotransferase < 8 U/L (13-40); Blood Urea Nitrogen 25 mg/dL (9-23); Glucose 157 mg/dL (74-106); Sodium 136 mmol/L (136-145)
[2025-01-02] MEDS: InsuLIN REG 1unit/0.01ml Soln (100units/ml) SC SCH (06:55)
--- NOTE | 2025-01-02 07:33 | DVHINCON2 ---
Date of service: Jan 02, 2025 Reason for Consultation Left ankle fracture History of Present Illness Mrs. Vasquez is a 79-year-old female who was brought to the hospital after experiencing a mechanical fall approximately one week ago where she reports she was walking with the assistance of her walker when her knees gave out on her causing her to fall and land her full body onto her left ankle and has been having swelling and pain since the fall. Patient noticed that the swelling and pain was progressively worsening and was unable to bear weight on side and thought it was an ankle sprain and was giving it time to get better but when she noticed that it was worsening decided to come into the hospital. Patient denied any head trauma, loss of consciousness, chest pain, shortness of breath, nausea, vomiting, fever, or chills. Past Medical History Hypertension, hyperlipidemia, diabetes, and anxiety Past Surgical History ORIF of right ankle and right elbow Family History Noncontributory Social History Patient denies smoking, EtOH, or illicit substance abuse Allergies: Coded Allergies: NO KNOWN ALLERGIES (Unverified , 01/01/25) Home Meds Active Scripts Acetaminophen (Tylenol 8 Hour Arthritis) 650 Mg Tab, 650 MG PO TID, #30 TAB Prov:SARBJIT CRANE 11/14/24 Current Medications Current Medications Medications (Trade) Dose Ordered Sig/Gregg Route PRN Reason Start Time Stop Time Status Last Admin Ceftriaxone Sodium 50 ml @ 100 mls/hr DAILY@09 IV 01/02/25 09:00 Diagnostic Test (Pha) (Accu-Chek Comfort Curve T) 1 strip ACHS 01/01/25 22:00 01/02/25 06:45 Insulin Human Regular (InsuLIN R) HS SC 01/01/25 22:00 01/01/25 22:24 Insulin Human Regular (InsuLIN R) AC SC 01/02/25 07:00 01/02/25 06:55 Dextrose 50 ml UD PRN IV Blood Sugar LESS THAN 60 01/01/25 21:00 Sodium Chloride 1,000 ml @ 60 mls/hr [id number] IV 01/01/25 21:00 01/01/25 21:47 Acetaminophen/ Hydrocodone Bitart ([place] 5/325MG Tab) 1 tab Q4HP PRN PO MODERATE PAIN (4-6 PAIN SCALE) 01/01/25 21:00 01/02/25 06:33 Ondansetron HCl (Zofran) 4 mg Q4HP PRN IV NAUSEA / VOMITING 01/01/25 21:00 Docusate Sodium (Colace Capsule) 100 mg BIDPRN PRN PO FOR CONSTIPATION 01/01/25 21:00 Enoxaparin Sodium (Lovenox) 40 mg DAILY SC 01/02/25 10:00 Acetaminophen (Tylenol Tablet) 650 mg Q6HP PRN PO PAIN SCALE 1-3 OR TEMP>100.4 01/01/25 21:00 Nitroglycerin (Ntrostat Sublingual) 0.4 mg Q5MINP PRN SL FOR CHEST PAIN 01/01/25 23:15 Morphine Sulfate 2 mg Q30M PRN IV FOR CHEST PAIN 01/01/25 23:15 Review of Systems 10 point review of systems negative except as per HPI Vital Signs Vital Signs Date Time Temp Pulse Resp B/P (MAP) Pulse Ox O2 Delivery O2 Flow Rate FiO2 01/02/25 06:00 96 17 112/47 (68) 93 01/01/25 22:35 Room Air* 0 21 01/01/25 22:35 98.0 98.0 Physical Exam General appearance: A&O x4 in no acute distress HEENT: Normal ENT inspection, pharynx normal, TMs normal Neck: Full range of motion, nontender, normal inspection Respiratory: Chest nontender, without accessory muscle use, no respiratory distress Cardiovascular: No edema, no JVD, normal peripheral pulses Gastrointestinal: Soft, nontender, no organomegaly. Musculoskeletal: Left ankle range of motion grossly limited with pain on movement, moderate swelling, no calf tenderness, normal capillary refill, mild pedal edema, neurovascularly intact. Patient remains in posterior leg splint Skin: Dry, normal color, warm Lymphatic: No adenopathy Labs/Diagnostic Data Labs Test 01/02/25 06:43 01/02/25 05:03 01/02/25 00:30 Range/Units POC Glucose 173 H 70-106 mg/dl White Blood Count 11.6 H 4.4-10.8 10^3/uL Red Blood Count 3.84 L 4.0-5.20 10^6/uL Hemoglobin 12.4 12.2-16.2 g/dL Hematocrit 35.7 #L 36.0-46.0 % Mean Corpuscular Volume 93.0 80.0-100.0 fL Mean Corpuscular Hemoglobin 32.2 H 28.0-32.0 pg Mean Corpuscular Hemoglobin Concent 34.6 32.0-36.0 g/dL Red Cell Distribution Width 12.9 11.8-14.3 % Platelet Count 292 140-450 10^3/uL Mean Platelet Volume 7.7 6.9-10.8 fL Neutrophils (%) (Auto) 71.0 37.0-80.0 % Lymphocytes (%) (Auto) 17.0 10.0-50.0 % Monocytes (%) (Auto) 10.6 0.0-12.0 % Eosinophils (%) (Auto) 0.9 0.0-7.0 % Basophils (%) (Auto) 0.5 0.0-2.0 % Neutrophils # (Auto) 8.2 1.6-8.6 10 ^3/uL Lymphocytes # (Auto) 2.0 0.4-5.4 10 ^3/uL Monocytes # (Auto) 1.2 0-1.3 10 ^3/uL Eosinophils # (Auto) 0.1 0-0.8 10 ^3/uL Basophils # (Auto) 0.1 0-0.2 10 ^3/uL Nucleated Red Blood Cells 0.0 % Sodium Level 136 136-145 mmol/L Potassium Level 4.4 3.5-5.1 mmol/L Chloride Level 105 98-107 mmol/L Carbon Dioxide Level 22 20-31 mmol/L Anion Gap 9 5-15 Blood Urea Nitrogen 25 H 9-23 mg/dL Creatinine 0.93 0.550-1.02 mg/dL Glomerular Filtration Rate Calc 63 >90 mL/min BUN/Creatinine Ratio 26.9 H 10.0-20.0 Serum Glucose 157 H 74-106 mg/dL Calcium Level 9.9 8.7-10.4 mg/dL Total Bilirubin 0.5 0.2-1.0 mg/dL Aspartate Amino Transferase (AST) < 8 L 13-40 U/L Alanine Aminotransferase (ALT) 18 7-40 U/L Alkaline Phosphatase 85 46-116 U/L Total Protein 6.7 5.7-8.2 g/dL Albumin 4.1 3.2-4.8 g/dL Urine Color Yellow Yellow Urine Clarity Turbid H Clear Urine pH 5.5 5.0-9.0 Urine Specific [place] 1.022 1.001-1.035 Urine Protein Trace H Negative Urine Ketones Negative Negative Urine Blood Negative Negative /uL Urine Nitrite Negative Negative Urine Bilirubin Negative Negative Urine Urobilinogen 2 H Negative mg/dL Urine Leukocyte Esterase 2+ Negative /uL Urine RBC 23 0 - 4 /hpf Urine Microscopic WBC 5 0-5 /HPF Urine Squamous Epithelial Cells Few <5 /hpf Urine Bacteria None seen None Seen /hpf Urine Mucus Few None Seen Urine Yeast (Budding) Many None Seen /hpf Urine Glucose 4+ H Normal mg/dL Left ankle x-ray reviewed and demonstrated: Displaced fracture of the distal fibula with intra-articular extension. Displaced fracture of the medial malleolus. There is disruption of the ankle mortise. Diffuse osteopenia. Diffuse soft-tissue swelling. Left ankle CT scan reviewed and demonstrated: Trimalleolar fracture with lateral subluxation of the talus. Patient also has significant atherosclerotic disease in the arteries of the [id number] lower extremity. Assessment Left ankle trimalleolar fracture and syndesmotic disruption Plan/Recommendation I had a lengthy discussion with the patient regarding nonoperative versus operative management and after discussing her case and reviewing her imaging studies with Dr. Turner we have recommended an ORIF of her left ankle trimalleolar fracture and syndesmotic disruption. I discussed all of the risks and complications involved with surgery including but not limited to bleeding, infection, nerve injury, chronic pain, nonunion, malunion, need for further surgery, blood clots, DVT, PE, cardiac and pulmonary complications, and even . She understood and agreed to proceed with the surgery. We will plan to undergo surgery tomorrow morning if schedule allows and patient remains medically stable. Thank you for allowing us to participate in the care of your patient. Plan discussed with: Patient, Son LYNETTE MEDRANO NEFTALI Jan 02, 2025 07:33
[2025-01-02] MEDS: ENOXAPARIN SOD 40 MG/0.4 ML SYRINGE SC SCH (08:56)
[2025-01-02] MEDS: cefTRIAXone 1GM/50ML D5W 50 ML IV SCH (08:57)
--- NOTE | 2025-01-02 11:56 | DVHPN2 ---
Subjective 79-year-old female who has a history of hypertension dyslipidemia diabetes who fell at home about a week ago and she was still ambulating and noticed that her left ankle was getting swollen more and more daily She was seen by Orthopedic surgery and she is scheduled for surgery tomorrow She has a history of seizures which she takes Dilantin for Changes from previous H/P or p: Changes Eyes: No Pain, No Vision change, No Conjunctivae inflammation, No Eyelid inflammation, No Other, No Redness ENT: No Ear pain, No Ear discharge, No Nose pain, No Nose discharge, No Nose congestion, No Mouth pain, No Mouth swelling, No Throat pain, No Throat swelling, No Other Cardiovascular: No Chest Pain, No Palpitations, No Orthopnea, No Paroxysmal Noc. Dyspnea, No Edema, No Lt Headedness, No Other Respiratory: No Cough, No Dry, No Shortness of breath, No SOB with excertion, No Wheezing, No Hemoptysis, No Pleuritic Pain, No Sputum, No Other Gastrointestinal: No Nausea, No Vomiting, No Abdominal Pain, No Diarrhea, No Constipation, No Melena, No Hematochezia, No Other Genitourinary: No Dysuria, No Frequency, No Incontinence, No Hematuria, No Retention, No Other Musculoskeletal: other (left leg pain); No neck pain, No shoulder pain, No arm pain, No back pain, No hand pain, No leg pain, No foot pain Skin: No Rash, No Lesions, No Jaundice, No Bruising, No Other Objective Vitals Vital Signs Date Time Temp Pulse Resp B/P (MAP) Pulse Ox O2 Delivery O2 Flow Rate FiO2 01/02/25 08:00 98.5 84 20 110/52 (71) 97 98.5 01/02/25 08:00 Nasal Cannula* 2 28 Intake/Output Intake and Output 01/02/25 07:00 Intake Total 590 ml Balance 590 ml Intake IV Total 590 ml General Appearance: Alert, Oriented X3, Cooperative, No acute distress Lungs: Clear to auscultation, Normal air movement Cardiovascular: Regular rate, Normal S1, Normal S2, No murmurs Abdomen: Normal bowel sounds, Soft, No tenderness Extremities: No edema Medications Current Medications Medications Dose Ordered Sig/Gregg Route Start Time Stop Time Status Last Admin Dose Admin Ceftriaxone Sodium 50 ml @ 100 mls/hr DAILY@09 IV 01/02/25 09:00 01/02/25 08:57 100 MLS/HR Diagnostic Test (Pha) 1 strip ACHS 01/01/25 22:00 01/02/25 11:24 1 STRIP Insulin Human Regular HS SC 01/01/25 22:00 01/01/25 22:24 3 UNITS Insulin Human Regular AC SC 01/02/25 07:00 01/02/25 11:25 6 UNITS Dextrose 50 ml UD PRN IV 01/01/25 21:00 Sodium Chloride 1,000 ml @ 60 mls/hr [id number] IV 01/01/25 21:00 01/01/25 21:47 60 MLS/HR Acetaminophen/ Hydrocodone Bitart 1 tab Q4HP PRN PO 01/01/25 21:00 01/02/25 10:41 1 TAB Ondansetron HCl 4 mg Q4HP PRN IV 01/01/25 21:00 Docusate Sodium 100 mg BIDPRN PRN PO 01/01/25 21:00 Enoxaparin Sodium 40 mg DAILY SC 01/02/25 10:00 01/02/25 08:56 40 MG Acetaminophen 650 mg Q6HP PRN PO 01/01/25 21:00 Nitroglycerin 0.4 mg Q5MINP PRN SL 01/01/25 23:15 Morphine Sulfate 2 mg Q30M PRN IV 01/01/25 23:15 Laboratory Results Laboratory Tests 01/02/25 05:03 Chemistry Test 01/01/25 16:56 01/02/25 05:03 Albumin 4.6 g/dL (3.2-4.8) 4.1 g/dL (3.2-4.8) Calcium Level 10.0 mg/dL (8.7-10.4) 9.9 mg/dL (8.7-10.4) Total Protein 7.3 g/dL (5.7-8.2) 6.7 g/dL (5.7-8.2) LFT Test 01/01/25 16:56 01/02/25 05:03 Alanine Aminotransferase (ALT) 23 U/L (7-40) 18 U/L (7-40) Alkaline Phosphatase 103 U/L (46-116) 85 U/L (46-116) Aspartate Amino Transferase (AST) 18 U/L (13-40) < 8 U/L (13-40) L Total Bilirubin 0.4 mg/dL (0.2-1.0) 0.5 mg/dL (0.2-1.0) Urinalysis Test 01/02/25 00:30 Urine Color Yellow (Yellow) Urine Clarity Turbid (Clear) H Urine pH 5.5 (5.0-9.0) Urine Specific [place] 1.022 (1.001-1.035) Urine Protein Trace (Negative) H Urine Ketones Negative (Negative) Urine Blood Negative /uL (Negative) Urine Nitrite Negative (Negative) Urine Bilirubin Negative (Negative) Urine Urobilinogen 2 mg/dL (Negative) H Urine Leukocyte Esterase 2+ /uL (Negative) Urine RBC 23 /hpf (0 - 4) Urine Microscopic WBC 5 /HPF (0-5) Urine Squamous Epithelial Cells Few /hpf (<5) Urine Bacteria None seen /hpf (None Seen) Urine Mucus Few (None Seen) Urine Yeast (Budding) Many /hpf (None Seen) Urine Glucose 4+ mg/dL (Normal) H Assessment/Plan Assessment/Plan Left ankle fracture Epilepsy Hypertension Dyslipidemia Type 2 diabetes UTI Plan Orthopedic consult Scheduled for surgery tomorrow Lovenox Accu-Cheks Resume the home medications Monitor closely Full code Pain control with the [place] and morphine p.r.n. Resume Dilantin which she takes at home for seizures Rocephin for UTI Plan discussed with: Patient Date of Service: Jan 02, 2025 Billing Provider: NAA MANZANARES MD Common Visit Codes: NOT BILLABLE ANA MANZANARES MD Jan 02, 2025 11:56
[2025-01-02] MEDS: PHENYTOIN SODIUM 100 MG CAP PO ONE (12:49)
[2025-01-02 13:51] LABS: INR 1.04 (0.9-1.15); Partial Thromboplastin Time 39.1 SEC (24.5-34.5)
--- NOTE | 2025-01-02 14:29 | DVHSR ---
APPROVED REPORT EXAM: Two-dimensional and M-mode echocardiogram with Doppler and color Doppler. Blood Pressure: 12/47 mmHg INDICATION Pre-Op RISK FACTORS Height: 5'4, Weight: 140 DIMENSIONS LVDd2.7 (3.8-5.7cm)LA (2D)4.1 (1.9-4.0cm)Aortic Root3.3 (2.0-3.7cm) LVDs2.1 (2.5-4.0cm)LA (MM) (1.9-4.0cm)Aortic Cusp Exc1.1 (1.5-2.0cm) EF (%) 55.0 (55-70%)Rt. Atrium2.8 (1.9-4.0cm)Asc. Aorta3.0 cm IVSd1.3 (0.7-1.1cm)RV (D) (1.8-2.4cm) PWd1.4 (0.7-1.1cm) Mitral Valve MitralMitral Stenosis E wave1.09m/sMV Mean GR.6mmHg A wave1.73m/sMV Peak GR.124mmHg E/A ratio0.62D MVAcm2 DECEL [id number] 1/2 Timems Aortic Valve Aortic ValveAortic Stenosis V11.65m/Melyssa Mean GR.7mmHg V21.56m/Melyssa Peak GR.10mmHg LVOT Diameter2.0 (1.8-2.4cm)Doppler AVA3.32cm2 Pulmonic Valve V21.05m/s Tricuspid Valve TR Velocity3.62m/s [id number] Conclusion lvef 70% by visual estimate mild LVH normal rv function left atrium enlarged severe MAC, moderate mitral stenosis with mean gradient of 6.5mmhg no severe valve abnormalities noted
[2025-01-02] MEDS: PHENYTOIN SODIUM 100 MG CAP PO SCH (21:28)
[2025-01-03] VITALS (10 sets, daily range): BP systolic 103–140; BP diastolic 42–68; PULSE 74–98; RESP 14–20; TEMP 97.1–98.6; O2SAT 90–97
[2025-01-03 06:44] LABS: Basophils # (auto) 0.1 10 ^3/uL (0-0.2); Basophils % (auto) 0.6 % (0.0-2.0); Eosinophils # (auto) 0.2 10 ^3/uL (0-0.8); Eosinophils % (auto) 1.9 % (0.0-7.0); Hematocrit 35.1 % (36.0-46.0); Hemoglobin 12.1 g/dL (12.2-16.2); Lymphocytes # (auto) 1.5 10 ^3/uL (0.4-5.4); Lymphocytes % (auto) 16.9 % (10.0-50.0); Mean Corpuscular Hemoglobin 32.2 pg (28.0-32.0); Mean Corpuscular Hgb Conc. 34.6 g/dL (32.0-36.0); Mean Corpuscular Volume 93.2 fL (80.0-100.0); Monocytes # (auto) 0.8 10 ^3/uL (0-1.3); Monocytes % (auto) 9.1 % (0.0-12.0); Neutrophils # (auto) 6.3 10 ^3/uL (1.6-8.6); Neutrophils % (auto) 71.5 % (37.0-80.0); Nucleated Red Blood Cells % 0.1 %; Platelet Count (auto) 298 10^3/uL (140-450); Red Blood Cells 3.76 10^6/uL (4.0-5.20); Red Cell Distribution Width 12.7 % (11.8-14.3); White Blood Cell 8.8 10^3/uL (4.4-10.8)
[2025-01-03 06:55] LABS: Alanine Aminotransferase 21 U/L (7-40); Albumin 3.9 g/dL (3.2-4.8); Alkaline Phosphatase 78 U/L (46-116); Anion Gap 10 (5-15); Aspartate Aminotransferase 16 U/L (13-40); BUN/Creatinine Ratio 24.7 (10.0-20.0); Bilirubin, Total 0.4 mg/dL (0.2-1.0); Blood Urea Nitrogen 23 mg/dL (9-23); Calcium 9.7 mg/dL (8.7-10.4); Carbon Dioxide 22 mmol/L (20-31); Chloride 106 mmol/L (98-107); Cholesterol 145 mg/dL (< 200); Glucose 213 mg/dL (74-106); HDL Cholesterol 47 mg/dL (40-59); LDL Cholesterol 69 mg/dL (< 100); Magnesium 1.6 mg/dL (1.6-2.6); Potassium 4.1 mmol/L (3.5-5.1); Sodium 138 mmol/L (136-145); Total Protein 6.4 g/dL (5.7-8.2); Triglycerides 121 mg/dL (< 150)
[2025-01-03] MEDS ORDERED: fentaNYL CITRATE 100 MCG/2 ML VL ONE (07:25)
[2025-01-03] MEDS ORDERED: KETAMINE 50mg/ML 1ml syringe ONE (07:26)
[2025-01-03] MEDS ORDERED: MIDAZOLAM HCL 2MG/2ML 2ml VIAL (1mg/ml) ONE (07:26)
[2025-01-03] MEDS: ceFAZolin 2 GM/D5W100ml 100 ML IV ONE (07:46)
[2025-01-03] MEDS ORDERED: HYDROmorphone HCL 2 MG/ML VL/or syr ONE (08:24)
[2025-01-03] MEDS ORDERED: NEOSTIGMINE 1 MG/ML INJ (10mg/10ML VIAL) ONE (08:39)
--- NOTE | 2025-01-03 09:12 | DVHOP2 ---
Operative Report - 2 Report Details Date: 01/03/25 Preop Diagnosis: Left ankle trimalleolar fracture with syndesmosis rupture Postop Diagnosis: Left ankle trimalleolar fracture with syndesmosis rupture Surgeon: Domitila Turner MD Anesthesiologist: Stephanie COON Anesthesia: General Implant: Fusion ankle system with eight hole plate and six screws, Acumed tight rope Consent: The patient was informed of the risks and benefits of the procedure. These include but are not limited to complications of anesthesia, postoperative infection, incomplete relief of symptoms, recurrence of symptoms, damage to blood vessels, nerves and tendons, deep venous thrombosis, pulmonary embolism and possible need for repeat surgery in the future. Complications: None Estimated Blood Loss: 50 cc Fluids: See anesthesia record Findings: Severely comminuted medial malleolus as well as severe skin inflammation medially precluding attempted internal fixation of the medial malleolus, small posterior malleolus fragment, lateral malleolus fracture and widened mortise Indications for Surgery: Unstable left ankle fracture Name of Procedure Performed Open reduction internal fixation left ankle trimalleolar fracture with syndesmosis fixation, C-arm fluoroscopy Procedure Details Procedure Details: Patient was brought to the operating room and placed on the table in supine position. General anesthetic was given. IV Ancef was given. Tourniquet applied to the left thigh. Left lower extremity was prepped and draped in sterile fashion. Surgical time-out was performed verifying patient, laterality, and procedure. Extremity was elevated, exsanguinated with Esmarch, and tourniq uet inflated to 250 mmHg. Skin incision was made laterally. Hemostasis maintained with Bovie. Soft tissue was elevated off the fracture site. Fracture was reduced with tenaculum and the plate was applied to the bone fixed proximally with a cortical screw and distally with a cancellous screw. C-arm brought in to verify positioning. I then placed two additional locking screws p roximally and two locking screws distally. Screw insertion technique involved drilling with a two a drill bit, measuring with depth gauge and application of screw. C-arm was brought into verify hardware placement and fracture reduction with multiple views. I then reduced the syndesmosis with a clamp the making a small stab wound medially to facilitate placement of the clamp. I then drilled across the fibula and tibia and inserted the Acumed tight rope pulled back and secured the two buttons. Removal of clamp verified adequate stability of the syndesmosis. In addition, reduction verified. I cut the sutures. Multiple x- rays were obtained verifying fracture reduction and hardware placement. I did a push-pull test to make sure the syndesmosis was stable. Wound was irrigated with normal saline bulb syringe. I repaired the subQ with 2-0 Vicryl and skin with hector. A bulky [place] dressing with stirrup type splint was applied. Tourniquet released at time of closure. Patient tolerated the procedu re well was brought to recovery room in stable condition. Condition Stable Disposition Still a Patient DOMITILA TURNER MD Jan 03, 2025 09:12
[2025-01-03] MEDS ORDERED: HYDROmorphone HCL 2 MG/ML VL/or syr IV PRN ×2 (09:15)
[2025-01-03] MEDS: HYDROmorphone HCL 2 MG/ML VL/or syr IV PRN (09:17)
[2025-01-03] MEDS: ONDANSETRON HCL 4 MG/2 ML VIAL IV PRN (09:20)
[2025-01-03] MEDS: HYDROmorphone HCL 2 MG/ML VL/or syr ONE (09:52)
[2025-01-03] MEDS: METOCLOPRAMIDE HCL 5MG/ml INJ 2ml VIAL ONE (10:00)
[2025-01-03] MEDS: ACETAMINOPHEN IV 1000 MG/100ML (10MG/ML) IV ONE (10:10)
--- NOTE | 2025-01-03 10:16 | DVH ---
C-ARM FLUOROSCOPY: PROCEDURE: Left ankle ORIF FLUOROSCOPY TIME: 30.3 seconds DAP: 0.5 mgy FINDINGS: Spot intraoperative C arm radiographs demonstrating left ankle ORIF. IMPRESSION: Please refer to surgical report for detailed findings.
--- NOTE | 2025-01-03 13:25 | DVHPN2 ---
Subjective Status post surgery Blood glucose high 239 Vital signs are stable Changes from previous H/P or p: Changes Eyes: No Pain, No Vision change, No Conjunctivae inflammation, No Eyelid inflammation, No Other, No Redness ENT: No Ear pain, No Ear discharge, No Nose pain, No Nose discharge, No Nose congestion, No Mouth pain, No Mouth swelling, No Throat pain, No Throat swelling, No Other Cardiovascular: No Chest Pain, No Palpitations, No Orthopnea, No Paroxysmal Noc. Dyspnea, No Edema, No Lt Headedness, No Other Respiratory: No Cough, No Dry, No Shortness of breath, No SOB with excertion, No Wheezing, No Hemoptysis, No Pleuritic Pain, No Sputum, No Other Gastrointestinal: No Nausea, No Vomiting, No Abdominal Pain, No Diarrhea, No Constipation, No Melena, No Hematochezia, No Other Genitourinary: No Dysuria, No Frequency, No Incontinence, No Hematuria, No Retention, No Other Musculoskeletal: other (left leg pain); No neck pain, No shoulder pain, No arm pain, No back pain, No hand pain, No leg pain, No foot pain Skin: No Rash, No Lesions, No Jaundice, No Bruising, No Other Objective Vitals Vital Signs Date Time Temp Pulse Resp B/P (MAP) Pulse Ox O2 Delivery O2 Flow Rate FiO2 01/03/25 11:00 88 18 92 Nasal Cannula* 2 28 01/03/25 10:57 97.1 113/56 (75) 97.1 Intake/Output Intake and Output 01/03/25 07:00 Intake Total 1070 ml Balance 1070 ml Intake Oral 750 ml IV Total 320 ml # Voids 4 # Bowel Movements 1 General Appearance: Alert, Oriented X3, Cooperative, No acute distress Lungs: Clear to auscultation, Normal air movement Cardiovascular: Regular rate, Normal S1, Normal S2, No murmurs Abdomen: Normal bowel sounds, Soft, No tenderness Extremities: No edema Medications Current Medications Medications Dose Ordered Sig/Gregg Route Start Time Stop Time Status Last Admin Dose Admin Ceftriaxone Sodium 50 ml @ 100 mls/hr DAILY@09 IV 01/02/25 09:00 01/03/25 11:24 100 MLS/HR Diagnostic Test (Pha) 1 strip ACHS 01/01/25 22:00 01/03/25 12:47 1 STRIP Insulin Human Regular HS SC 01/01/25 22:00 01/02/25 21:30 4 UNITS Insulin Human Regular AC SC 01/02/25 07:00 01/03/25 12:50 3 UNITS Dextrose 50 ml UD PRN IV 01/01/25 21:00 Acetaminophen/ Hydrocodone Bitart 1 tab Q4HP PRN PO 01/01/25 21:00 01/02/25 18:21 1 TAB Ondansetron HCl 4 mg Q4HP PRN IV 01/01/25 21:00 01/03/25 09:20 4 MG Docusate Sodium 100 mg BIDPRN PRN PO 01/01/25 21:00 Enoxaparin Sodium 40 mg DAILY SC 01/02/25 10:00 01/02/25 08:56 40 MG Acetaminophen 650 mg Q6HP PRN PO 01/01/25 21:00 Nitroglycerin 0.4 mg Q5MINP PRN SL 01/01/25 23:15 Morphine Sulfate 2 mg Q30M PRN IV 01/01/25 23:15 Phenytoin Sodium 100 mg Q12HR PO 01/02/25 22:00 01/03/25 11:33 100 MG Morphine Sulfate 2 mg Q4HPRN PRN IV 01/02/25 12:00 Cefazolin Sodium/ Dextrose 50 ml @ 50 mls/hr Q8HR IV 01/03/25 14:00 01/03/25 22:59 Laboratory Results Laboratory Tests 01/03/25 05:40 Chemistry Test 01/03/25 05:40 Albumin 3.9 g/dL (3.2-4.8) Calcium Level 9.7 mg/dL (8.7-10.4) Magnesium Level 1.6 mg/dL (1.6-2.6) Total Protein 6.4 g/dL (5.7-8.2) Coagulation Test 01/02/25 13:25 Prothrombin Time 11.0 sec (9.3-11.8) Prothrombin Time INR 1.04 (0.9-1.15) Activated Partial Thromboplast Time 39.1 SEC (24.5-34.5) H Lipid panel Test 01/03/25 05:40 Cholesterol Level 145 mg/dL (< 200) HDL Cholesterol 47 mg/dL (40-59) Triglycerides Level 121 mg/dL (< 150) LFT Test 01/03/25 05:40 Alanine Aminotransferase (ALT) 21 U/L (7-40) Alkaline Phosphatase 78 U/L (46-116) Aspartate Amino Transferase (AST) 16 U/L (13-40) Total Bilirubin 0.4 mg/dL (0.2-1.0) HgA1c, TSH Test 01/03/25 05:40 Hemoglobin A1c 8.3 % A1C (<5.7) H Thyroid Stimulating Hormone (TSH) 1.72 uIU/mL (0.55-4.78) Urinalysis Test 01/02/25 00:30 Urine Color Yellow (Yellow) Urine Clarity Turbid (Clear) H Urine pH 5.5 (5.0-9.0) Urine Specific [place] 1.022 (1.001-1.035) Urine Protein Trace (Negative) H Urine Ketones Negative (Negative) Urine Blood Negative /uL (Negative) Urine Nitrite Negative (Negative) Urine Bilirubin Negative (Negative) Urine Urobilinogen 2 mg/dL (Negative) H Urine Leukocyte Esterase 2+ /uL (Negative) Urine RBC 23 /hpf (0 - 4) Urine Microscopic WBC 5 /HPF (0-5) Urine Squamous Epithelial Cells Few /hpf (<5) Urine Bacteria None seen /hpf (None Seen) Urine Mucus Few (None Seen) Urine Yeast (Budding) Many /hpf (None Seen) Urine Glucose 4+ mg/dL (Normal) H Assessment/Plan Assessment/Plan Left ankle fracture Epilepsy Hypertension Dyslipidemia Type 2 diabetes UTI Plan Orthopedic consult Scheduled for surgery tomorrow Lovenox Accu-Cheks Resume the home medications Monitor closely Full code Pain control with the [place] and morphine p.r.n. Resume Dilantin which she takes at home for seizures Rocephin for UTI 01/03/2025: Start Lantus 10 units daily Accu-Cheks Pain management as needed Order physical therapy evaluation Consult social services analyst to arrange SNF for rehab Monitor closely Continue Rocephin for UTI Continue Dilantin for seizures Monitor closely Plan discussed with: Patient Date of Service: Jan 03, 2025 Billing Provider: ANA MANZANARES MD Common Visit Codes: NOT BILLABLE ANA MANZANARES MD Jan 03, 2025 13:25
[2025-01-03] MEDS ORDERED: ceFAZolin 2 GM/D5W50ml 50 ML IV SCH (14:00)
[2025-01-03] MEDS: INSULIN LANTUS (GLARGINE) 1 /0.01ml (100units/ml) SC ONE (14:52)
[2025-01-03] MEDS: ACETAMINOPHEN 325 MG TAB PO PRN (15:30)
[2025-01-03] MEDS: INSULIN LANTUS (GLARGINE) 1 /0.01ml (100units/ml) SC SCH (22:11)
[2025-01-04] VITALS (10 sets, daily range): BP systolic 111–139; BP diastolic 61–74; PULSE 93–111; RESP 14–18; TEMP 97.9–99.2; O2SAT 91–98
--- NOTE | 2025-01-04 11:14 | DVHPN2 ---
Subjective c/o muscle spasm Changes from previous H/P or p: Changes Eyes: No Pain, No Vision change, No Conjunctivae inflammation, No Eyelid inflammation, No Other, No Redness ENT: No Ear pain, No Ear discharge, No Nose pain, No Nose discharge, No Nose congestion, No Mouth pain, No Mouth swelling, No Throat pain, No Throat swelling, No Other Cardiovascular: No Chest Pain, No Palpitations, No Orthopnea, No Paroxysmal Noc. Dyspnea, No Edema, No Lt Headedness, No Other Respiratory: No Cough, No Dry, No Shortness of breath, No SOB with excertion, No Wheezing, No Hemoptysis, No Pleuritic Pain, No Sputum, No Other Gastrointestinal: No Nausea, No Vomiting, No Abdominal Pain, No Diarrhea, No Constipation, No Melena, No Hematochezia, No Other Genitourinary: No Dysuria, No Frequency, No Incontinence, No Hematuria, No Retention, No Other Musculoskeletal: other (left leg pain); No neck pain, No shoulder pain, No arm pain, No back pain, No hand pain, No leg pain, No foot pain Skin: No Rash, No Lesions, No Jaundice, No Bruising, No Other Objective Vitals Vital Signs Date Time Temp Pulse Resp B/P (MAP) Pulse Ox O2 Delivery O2 Flow Rate FiO2 01/04/25 08:30 98.6 99 15 139/72 (94) 94 98.6 01/04/25 07:51 Nasal Cannula* 1 24 Intake/Output Intake and Output 01/04/25 07:00 Intake Total 950 ml Balance 950 ml Intake Oral 800 ml IV Total 150 ml # Voids 9 General Appearance: Alert, Oriented X3, Cooperative, No acute distress Lungs: Clear to auscultation, Normal air movement Cardiovascular: Regular rate, Normal S1, Normal S2, No murmurs Abdomen: Normal bowel sounds, Soft, No tenderness Extremities: No edema Medications Current Medications Medications Dose Ordered Sig/Gregg Route Start Time Stop Time Status Last Admin Dose Admin Ceftriaxone Sodium 50 ml @ 100 mls/hr DAILY@09 IV 01/02/25 09:00 01/04/25 09:21 100 MLS/HR Diagnostic Test (Pha) 1 strip ACHS 01/01/25 22:00 01/04/25 07:21 1 STRIP Insulin Human Regular HS SC 01/01/25 22:00 01/03/25 22:05 3 UNITS Insulin Human Regular AC SC 01/02/25 07:00 01/04/25 07:22 3 UNITS Dextrose 50 ml UD PRN IV 01/01/25 21:00 Acetaminophen/ Hydrocodone Bitart 1 tab Q4HP PRN PO 01/01/25 21:00 01/04/25 09:22 1 TAB Ondansetron HCl 4 mg Q4HP PRN IV 01/01/25 21:00 01/03/25 09:20 4 MG Docusate Sodium 100 mg BIDPRN PRN PO 01/01/25 21:00 Enoxaparin Sodium 40 mg DAILY SC 01/02/25 10:00 01/04/25 09:33 40 MG Acetaminophen 650 mg Q6HP PRN PO 01/01/25 21:00 01/03/25 15:30 650 MG Nitroglycerin 0.4 mg Q5MINP PRN SL 01/01/25 23:15 Morphine Sulfate 2 mg Q30M PRN IV 01/01/25 23:15 Phenytoin Sodium 100 mg Q12HR PO 01/02/25 22:00 01/04/25 09:33 100 MG Morphine Sulfate 2 mg Q4HPRN PRN IV 01/02/25 12:00 Insulin Glargine 10 units HS SC 01/03/25 22:00 01/03/25 22:11 10 UNITS Laboratory Results Laboratory Tests 01/03/25 05:40 Urinalysis Test 01/02/25 00:30 Urine Color Yellow (Yellow) Urine Clarity Turbid (Clear) H Urine pH 5.5 (5.0-9.0) Urine Specific [place] 1.022 (1.001-1.035) Urine Protein Trace (Negative) H Urine Ketones Negative (Negative) Urine Blood Negative /uL (Negative) Urine Nitrite Negative (Negative) Urine Bilirubin Negative (Negative) Urine Urobilinogen 2 mg/dL (Negative) H Urine Leukocyte Esterase 2+ /uL (Negative) Urine RBC 23 /hpf (0 - 4) Urine Microscopic WBC 5 /HPF (0-5) Urine Squamous Epithelial Cells Few /hpf (<5) Urine Bacteria None seen /hpf (None Seen) Urine Mucus Few (None Seen) Urine Yeast (Budding) Many /hpf (None Seen) Urine Glucose 4+ mg/dL (Normal) H Assessment/Plan Assessment/Plan Left ankle fracture Epilepsy Hypertension Dyslipidemia Type 2 diabetes UTI Plan Orthopedic consult Scheduled for surgery tomorrow Lovenox Accu-Cheks Resume the home medications Monitor closely Full code Pain control with the [place] and morphine p.r.n. Resume Dilantin which she takes at home for seizures Rocephin for UTI 01/03/2025: Start Lantus 10 units daily Accu-Cheks Pain management as needed Order physical therapy evaluation Consult medical social consultant to arrange SNF for rehab Monitor closely Continue Rocephin for UTI Continue Dilantin for seizures Monitor closely 01/04/25: Continue pain management Add Flexeril prn PT Arrange SNF for rehab Plan discussed with: Patient My Orders Orders - ANA MANZANARES MD Procedure Category Date Status Time Pt Request For Service PT 01/03/25 Logged 13:20 * [employer] Manager CONS 01/03/25 Transmitted Consult Insulin Lantus PHA 01/03/25 In Process (Glargine) (Lantus) 22:00 Consistent DIET 01/03/25 Transmitted Carb(Ccho)Diabetes Dinner Apply Barrier Cream KRISTIN 01/03/25 In Process 12:00 * Wound Consult CONS 01/03/25 Transmitted Date of Service: Jan 04, 2025 Billing Provider: ANA MANZANARES MD Common Visit Codes: NOT BILLABLE ANA MANZANARES MD Jan 04, 2025 11:14
[2025-01-04] MEDS: CYCLOBENZAPRINE HCL 10 MG TAB PO PRN (12:50)
--- NOTE | 2025-01-04 12:51 | DVHPN2 ---
Progress Note - Dictate Date Seen: Jan 04, 2025 Medical Necessity Reason Pt with a Central, PICC or Fol: No Subjective No unusual complaints. Pain well controlled. vital signs Vital Sign Date Time Temp Pulse Resp B/P (MAP) Pulse Ox O2 Delivery O2 Flow Rate FiO2 01/04/25 08:30 98.6 99 15 139/72 (94) 94 98.6 01/04/25 07:51 Nasal Cannula* 1 24 Total Intake and Output 01/03/25 01/03/25 01/04/25 15:00 23:00 07:00 Intake Total 150 ml 500 ml 300 ml Balance 150 ml 500 ml 300 ml medications Current Medications Medications Dose Ordered Sig/Gregg Route Start Time Stop Time Status Last Admin Dose Admin Ceftriaxone Sodium 50 ml @ 100 mls/hr DAILY@09 IV 01/02/25 09:00 01/04/25 09:21 100 MLS/HR Diagnostic Test (Pha) 1 strip ACHS 01/01/25 22:00 01/04/25 11:30 1 STRIP Insulin Human Regular HS SC 01/01/25 22:00 01/03/25 22:05 3 UNITS Insulin Human Regular AC SC 01/02/25 07:00 01/04/25 11:30 9 UNITS Dextrose 50 ml UD PRN IV 01/01/25 21:00 Acetaminophen/ Hydrocodone Bitart 1 tab Q4HP PRN PO 01/01/25 21:00 01/04/25 09:22 1 TAB Ondansetron HCl 4 mg Q4HP PRN IV 01/01/25 21:00 01/03/25 09:20 4 MG Docusate Sodium 100 mg BIDPRN PRN PO 01/01/25 21:00 Enoxaparin Sodium 40 mg DAILY SC 01/02/25 10:00 01/04/25 09:33 40 MG Acetaminophen 650 mg Q6HP PRN PO 01/01/25 21:00 01/03/25 15:30 650 MG Nitroglycerin 0.4 mg Q5MINP PRN SL 01/01/25 23:15 Morphine Sulfate 2 mg Q30M PRN IV 01/01/25 23:15 Phenytoin Sodium 100 mg Q12HR PO 01/02/25 22:00 01/04/25 09:33 100 MG Morphine Sulfate 2 mg Q4HPRN PRN IV 01/02/25 12:00 Insulin Glargine 10 units HS SC 01/03/25 22:00 01/03/25 22:11 10 UNITS Cyclobenzaprine HCl 5 mg Q8HPRN PRN PO 01/04/25 11:15 objective Alert and oriented x4 Left lower extremity is splinted She is able to demonstrate some minimal flexion-extension of the toes Sensation subjectively intact She has normal temperature, color, and cap refill. laboratory and microbiology Laboratory Tests 01/03/25 05:40 Test 01/03/25 05:40 Range/Units Serum Glucose 213 H 74-106 mg/dL Assessment/Plan Postop day 1. S/p open reduction internal fixation left ankle fracture Poorly controlled diabetes Plan: Touchdown weight-bearing with walker Elevation as needed for pain and swelling Keep splint dry and intact Follow up Orthopedics 10-14 days Improved blood sugar control per hospitalist. Poor control increases risk of complication and wound healing. Dietary Evaluation Review Comments: 1) Initiate multivitamin @ 1 tb qd 2) Initiate vitamin C @ 500 mg bid 3) Continue to promote optimal PO intake 4) Refer to outpatient RD/[facility] for diabetes education d/t uncontrolled HbA1c 5) Encourage adequate hydration 6) Follow-up with PT Expected Outcomes/Goals: 1) appetite and labs to improve 2) would to improve 3) return in 5 days Plan discussed with: Patient DOMITILA JIMENEZ MD Jan 04, 2025 12:51
[2025-01-05] VITALS (8 sets, daily range): BP systolic 109–142; BP diastolic 59–70; PULSE 83–99; RESP 16–18; TEMP 97.9–98.7; O2SAT 93–98
[2025-01-05] MEDS ORDERED: FLUO-470 PO (07:17)
[2025-01-05] MEDS ORDERED: ALPR0.254 (07:17)
[2025-01-05] MEDS ORDERED: HYDR50TA47 PO (07:17)
[2025-01-05] MEDS ORDERED: ATOR40TA52 (07:17)
[2025-01-05] MEDS ORDERED: ATEN50TA (07:17)
[2025-01-05] MEDS ORDERED: GLIP10TA9 (07:17)
[2025-01-05] MEDS ORDERED: ALBUAER3 IN (07:17)
[2025-01-05] MEDS ORDERED: LEVO50TA7 PO (07:17)
[2025-01-05] MEDS ORDERED: BENA-36 (07:17)
[2025-01-05] MEDS ORDERED: HYDR-3682 (07:17)
[2025-01-05] MEDS ORDERED: AMIT100T75 (07:17)
[2025-01-05] MEDS ORDERED: PHEN1CAP38 PO (07:18)
--- NOTE | 2025-01-05 09:17 | DVHDS2 ---
Discharge Summary Date of Admission Jan 01, 2025 at 23:01 Date of Discharge: Jan 05, 2025 Labs/Diagnostic Data: Laboratory Results Test 01/05/25 06:44 01/03/25 05:40 01/02/25 13:25 01/02/25 05:03 POC Glucose 112 mg/dl (70-106) White Blood Count 8.8 10^3/uL (4.4-10.8) Red Blood Count 3.76 10^6/uL (4.0-5.20) Hemoglobin 12.1 g/dL (12.2-16.2) Hematocrit 35.1 % (36.0-46.0) Mean Corpuscular Volume 93.2 fL (80.0-100.0) Mean Corpuscular Hemoglobin 32.2 pg (28.0-32.0) Mean Corpuscular Hemoglobin Concent 34.6 g/dL (32.0-36.0) Red Cell Distribution Width 12.7 % (11.8-14.3) Platelet Count 298 10^3/uL (140-450) Mean Platelet Volume 8.0 fL (6.9-10.8) Neutrophils (%) (Auto) 71.5 % (37.0-80.0) Lymphocytes (%) (Auto) 16.9 % (10.0-50.0) Monocytes (%) (Auto) 9.1 % (0.0-12.0) Eosinophils (%) (Auto) 1.9 % (0.0-7.0) Basophils (%) (Auto) 0.6 % (0.0-2.0) Neutrophils # (Auto) 6.3 10 ^3/uL (1.6-8.6) Lymphocytes # (Auto) 1.5 10 ^3/uL (0.4-5.4) Monocytes # (Auto) 0.8 10 ^3/uL (0-1.3) Eosinophils # (Auto) 0.2 10 ^3/uL (0-0.8) Basophils # (Auto) 0.1 10 ^3/uL (0-0.2) Nucleated Red Blood Cells 0.1 % Sodium Level 138 mmol/L (136-145) Potassium Level 4.1 mmol/L (3.5-5.1) Chloride Level 106 mmol/L (98-107) Carbon Dioxide Level 22 mmol/L (20-31) Anion Gap 10 (5-15) Blood Urea Nitrogen 23 mg/dL (9-23) Creatinine 0.93 mg/dL (0.550-1.02) Glomerular Filtration Rate Calc 63 mL/min (>90) BUN/Creatinine Ratio 24.7 (10.0-20.0) Serum Glucose 213 mg/dL (74-106) Hemoglobin A1c 8.3 % A1C (<5.7) Calcium Level 9.7 mg/dL (8.7-10.4) Magnesium Level 1.6 mg/dL (1.6-2.6) Total Bilirubin 0.4 mg/dL (0.2-1.0) Aspartate Amino Transferase (AST) 16 U/L (13-40) Alanine Aminotransferase (ALT) 21 U/L (7-40) Alkaline Phosphatase 78 U/L (46-116) Total Protein 6.4 g/dL (5.7-8.2) Albumin 3.9 g/dL (3.2-4.8) Triglycerides Level 121 mg/dL (< 150) Cholesterol Level 145 mg/dL (< 200) LDL Cholesterol 69 mg/dL (< 100) HDL Cholesterol 47 mg/dL (40-59) Thyroid Stimulating Hormone (TSH) 1.72 uIU/mL (0.55-4.78) Prothrombin Time 11.0 sec (9.3-11.8) Prothrombin Time INR 1.04 (0.9-1.15) Activated Partial Thromboplast Time 39.1 SEC (24.5-34.5) Phenytoin (Dilantin) Level 3.3 ug/mL (10-20) Test 01/02/25 00:30 Urine Color Yellow (Yellow) Urine Clarity Turbid (Clear) Urine pH 5.5 (5.0-9.0) Urine Specific [place] 1.022 (1.001-1.035) Urine Protein Trace (Negative) Urine Ketones Negative (Negative) Urine Blood Negative /uL (Negative) Urine Nitrite Negative (Negative) Urine Bilirubin Negative (Negative) Urine Urobilinogen 2 mg/dL (Negative) Urine Leukocyte Esterase 2+ /uL (Negative) Urine RBC 23 /hpf (0 - 4) Urine Microscopic WBC 5 /HPF (0-5) Urine Squamous Epithelial Cells Few /hpf (<5) Urine Bacteria None seen /hpf (None Seen) Urine Mucus Few (None Seen) Urine Yeast (Budding) Many /hpf (None Seen) Urine Glucose 4+ mg/dL (Normal) Other Laboratory Tests 01/03/25 05:40 Brief Hx & Hospital Course: Final diagnoses: Left ankle trimalleolar fracture with syndesmosis rupture s/p ORIF Left ankle fracture status post ORIF Epilepsy Hypertension Dyslipidemia Type 2 diabetes UTI 79-year-old female came with a fall that resulted in left ankle fracture. She was seen by Orthopedic surgery and had surgery successfully with no complications. She also has UTI Her diabetes was not controlled and therefore she was started on Lantus and a sliding scale regular insulin it is doing better now Patient lives alone at home and because now she is not able to ambulate on her left leg she needs to go to a [facility] facility for rehab Discharged on cephalexin for the UTI for 5 days [place] p.r.n. for the pain Physical therapy Condition at Discharge: Stable Final Diagnosis/Problems List Left ankle trimalleolar fracture with syndesmosis rupture s/p ORIF Left ankle fracture Epilepsy Hypertension Dyslipidemia Type 2 diabetes UTI Discharge Disposition: Long Term Facility SNF Discharge Will this Physician continue t: No Discharge Instruct/Medications Diet: Cardiac 2g Na,low cholest Activity: No Restrictions, As Tolerated Follow Up/Referral: Dr. Chase Medications: See Med Rec Discharge Statement: "Patient was advised to return to the ER or call 911 if any headaches, dizziness, shortness of breath, chest pain, abdominal pain, bleeding, fevers, or worsening of medical condition. Patient was counseled about treatment plan, medications, possible side effects, patientverbalized understanding. All questions were answered to the best of my ability. This discharge took greater then 30 minutes in planning, reviewing documentation, counseling the patient, and discussing with other team members." ASSESSMENT ASSESSMENT Assessment Left ankle trimalleolar fracture with syndesmosis rupture s/p ORIF Left ankle fracture Epilepsy Hypertension Dyslipidemia Type 2 diabetes UTI Date of Service: Jan 05, 2025 Billing Provider: ANA MANZANARES MD Common Visit Codes: NOT BILLABLE ANA MANZANARES MD Jan 05, 2025 09:17
[2025-01-06] VITALS (9 sets, daily range): BP systolic 94–129; BP diastolic 52–73; PULSE 79–105; RESP 16–19; TEMP 97.5–98.5; O2SAT 91–97
[2025-01-06] MEDS: PHENYTOIN SODIUM 100 MG CAP PO SCH (10:14)
--- NOTE | 2025-01-06 12:22 | DVHPN2 ---
Subjective Awaiting SNF placement for rehab Changes from previous H/P or p: Changes Eyes: No Pain, No Vision change, No Conjunctivae inflammation, No Eyelid inflammation, No Other, No Redness ENT: No Ear pain, No Ear discharge, No Nose pain, No Nose discharge, No Nose congestion, No Mouth pain, No Mouth swelling, No Throat pain, No Throat swelling, No Other Cardiovascular: No Chest Pain, No Palpitations, No Orthopnea, No Paroxysmal Noc. Dyspnea, No Edema, No Lt Headedness, No Other Respiratory: No Cough, No Dry, No Shortness of breath, No SOB with excertion, No Wheezing, No Hemoptysis, No Pleuritic Pain, No Sputum, No Other Gastrointestinal: No Nausea, No Vomiting, No Abdominal Pain, No Diarrhea, No Constipation, No Melena, No Hematochezia, No Other Genitourinary: No Dysuria, No Frequency, No Incontinence, No Hematuria, No Retention, No Other Musculoskeletal: other (left leg pain); No neck pain, No shoulder pain, No arm pain, No back pain, No hand pain, No leg pain, No foot pain Skin: No Rash, No Lesions, No Jaundice, No Bruising, No Other Objective Vitals Vital Signs Date Time Temp Pulse Resp B/P (MAP) Pulse Ox O2 Delivery O2 Flow Rate FiO2 01/06/25 09:00 98.1 87 19 119/64 (82) 93 98.1 01/06/25 08:00 Room Air* 0 21 Intake/Output Intake and Output 01/06/25 07:00 Intake Total 1340 ml Balance 1340 ml Intake Oral 1340 ml # Voids 6 General Appearance: Alert, Oriented X3, Cooperative, No acute distress Lungs: Clear to auscultation, Normal air movement Cardiovascular: Regular rate, Normal S1, Normal S2, No murmurs Abdomen: Normal bowel sounds, Soft, No tenderness Extremities: No edema Medications Current Medications Medications Dose Ordered Sig/Gregg Route Start Time Stop Time Status Last Admin Dose Admin Ceftriaxone Sodium 50 ml @ 100 mls/hr DAILY@09 IV 01/02/25 09:00 01/06/25 10:01 100 MLS/HR Diagnostic Test (Pha) 1 strip ACHS 01/01/25 22:00 01/06/25 11:21 1 STRIP Insulin Human Regular HS SC 01/01/25 22:00 01/05/25 22:54 3 UNITS Insulin Human Regular AC SC 01/02/25 07:00 01/06/25 11:30 6 UNITS Dextrose 50 ml UD PRN IV 01/01/25 21:00 Acetaminophen/ Hydrocodone Bitart 1 tab Q4HP PRN PO 01/01/25 21:00 01/06/25 11:14 1 TAB Ondansetron HCl 4 mg Q4HP PRN IV 01/01/25 21:00 01/03/25 09:20 4 MG Docusate Sodium 100 mg BIDPRN PRN PO 01/01/25 21:00 Enoxaparin Sodium 40 mg DAILY SC 01/02/25 10:00 01/06/25 10:01 40 MG Acetaminophen 650 mg Q6HP PRN PO 01/01/25 21:00 01/03/25 15:30 650 MG Nitroglycerin 0.4 mg Q5MINP PRN SL 01/01/25 23:15 Morphine Sulfate 2 mg Q30M PRN IV 01/01/25 23:15 Morphine Sulfate 2 mg Q4HPRN PRN IV 01/02/25 12:00 Insulin Glargine 10 units HS SC 01/03/25 22:00 01/05/25 22:57 10 UNITS Cyclobenzaprine HCl 5 mg Q8HPRN PRN PO 01/04/25 11:15 01/06/25 11:14 5 MG Phenytoin Sodium 100 mg Q12HR PO 01/06/25 10:05 01/06/25 10:14 100 MG Laboratory Results Laboratory Tests 01/03/25 05:40 Urinalysis Test 01/02/25 00:30 Urine Color Yellow (Yellow) Urine Clarity Turbid (Clear) H Urine pH 5.5 (5.0-9.0) Urine Specific [place] 1.022 (1.001-1.035) Urine Protein Trace (Negative) H Urine Ketones Negative (Negative) Urine Blood Negative /uL (Negative) Urine Nitrite Negative (Negative) Urine Bilirubin Negative (Negative) Urine Urobilinogen 2 mg/dL (Negative) H Urine Leukocyte Esterase 2+ /uL (Negative) Urine RBC 23 /hpf (0 - 4) Urine Microscopic WBC 5 /HPF (0-5) Urine Squamous Epithelial Cells Few /hpf (<5) Urine Bacteria None seen /hpf (None Seen) Urine Mucus Few (None Seen) Urine Yeast (Budding) Many /hpf (None Seen) Urine Glucose 4+ mg/dL (Normal) H Assessment/Plan Assessment/Plan Left ankle fracture Epilepsy Hypertension Dyslipidemia Type 2 diabetes UTI Plan Orthopedic consult Scheduled for surgery tomorrow Lovenox Accu-Cheks Resume the home medications Monitor closely Full code Pain control with the [place] and morphine p.r.n. Resume Dilantin which she takes at home for seizures Rocephin for UTI 01/03/2025: Start Lantus 10 units daily Accu-Cheks Pain management as needed Order physical therapy evaluation Consult medical social consultant to arrange SNF for rehab Monitor closely Continue Rocephin for UTI Continue Dilantin for seizures Monitor closely 01/04/25: Continue pain management Add Flexeril prn PT Arrange SNF for rehab 01/06/2025: Continue the current regimen Continue Lantus Blood sugar is better controlled Discharge to SNF once a bed is available Plan discussed with: Patient My Orders Orders - ANA MANZANARES MD Procedure Category Date Status Time Phenytoin Capsule PHA 01/06/25 In Process (Dilantin Capsule) 10:05 Date of Service: Jan 06, 2025 Billing Provider: ANA MANZANARES MD Common Visit Codes: NOT BILLABLE ANA MANZANARES MD Jan 06, 2025 12:22
[2025-01-07] VITALS (8 sets, daily range): BP systolic 107–129; BP diastolic 62–90; PULSE 88–98; RESP 17–20; TEMP 97.9–99.5; O2SAT 93–97
[2025-01-07] MEDS: MORPHINE SULFATE INJ 2 MG/ml SYRG IV PRN (11:19)
--- NOTE | 2025-01-07 14:07 | DVHPN2 ---
Subjective Awaiting SNF placement for rehab Changes from previous H/P or p: Changes Eyes: No Pain, No Vision change, No Conjunctivae inflammation, No Eyelid inflammation, No Other, No Redness ENT: No Ear pain, No Ear discharge, No Nose pain, No Nose discharge, No Nose congestion, No Mouth pain, No Mouth swelling, No Throat pain, No Throat swelling, No Other Cardiovascular: No Chest Pain, No Palpitations, No Orthopnea, No Paroxysmal Noc. Dyspnea, No Edema, No Lt Headedness, No Other Respiratory: No Cough, No Dry, No Shortness of breath, No SOB with excertion, No Wheezing, No Hemoptysis, No Pleuritic Pain, No Sputum, No Other Gastrointestinal: No Nausea, No Vomiting, No Abdominal Pain, No Diarrhea, No Constipation, No Melena, No Hematochezia, No Other Genitourinary: No Dysuria, No Frequency, No Incontinence, No Hematuria, No Retention, No Other Musculoskeletal: other (left leg pain); No neck pain, No shoulder pain, No arm pain, No back pain, No hand pain, No leg pain, No foot pain Skin: No Rash, No Lesions, No Jaundice, No Bruising, No Other Objective Vitals Vital Signs Date Time Temp Pulse Resp B/P (MAP) Pulse Ox O2 Delivery O2 Flow Rate FiO2 01/07/25 12:00 88 16 112/76 01/07/25 09:00 98.3 96 98.3 01/07/25 08:00 Room Air* 0 21 Intake/Output Intake and Output 01/07/25 07:00 Intake Total 800 ml Balance 800 ml Intake Oral 800 ml # Voids 3 # Bowel Movements 1 General Appearance: Alert, Oriented X3, Cooperative, No acute distress Lungs: Clear to auscultation, Normal air movement Cardiovascular: Regular rate, Normal S1, Normal S2, No murmurs Abdomen: Normal bowel sounds, Soft, No tenderness Extremities: No edema Medications Current Medications Medications Dose Ordered Sig/Gregg Route Start Time Stop Time Status Last Admin Dose Admin Ceftriaxone Sodium 50 ml @ 100 mls/hr DAILY@09 IV 01/02/25 09:00 01/07/25 10:02 100 MLS/HR Diagnostic Test (Pha) 1 strip ACHS 01/01/25 22:00 01/07/25 11:52 1 STRIP Insulin Human Regular HS SC 01/01/25 22:00 01/06/25 21:25 4 UNITS Insulin Human Regular AC SC 01/02/25 07:00 01/07/25 12:08 6 UNITS Dextrose 50 ml UD PRN IV 01/01/25 21:00 Acetaminophen/ Hydrocodone Bitart 1 tab Q4HP PRN PO 01/01/25 21:00 01/07/25 04:02 1 TAB Ondansetron HCl 4 mg Q4HP PRN IV 01/01/25 21:00 01/03/25 09:20 4 MG Docusate Sodium 100 mg BIDPRN PRN PO 01/01/25 21:00 Enoxaparin Sodium 40 mg DAILY SC 01/02/25 10:00 01/07/25 10:03 40 MG Acetaminophen 650 mg Q6HP PRN PO 01/01/25 21:00 01/03/25 15:30 650 MG Nitroglycerin 0.4 mg Q5MINP PRN SL 01/01/25 23:15 Morphine Sulfate 2 mg Q30M PRN IV 01/01/25 23:15 Morphine Sulfate 2 mg Q4HPRN PRN IV 01/02/25 12:00 01/07/25 11:19 2 MG Insulin Glargine 10 units HS SC 01/03/25 22:00 01/06/25 21:25 10 UNITS Cyclobenzaprine HCl 5 mg Q8HPRN PRN PO 01/04/25 11:15 01/06/25 23:27 5 MG Phenytoin Sodium 100 mg Q12HR PO 01/06/25 10:05 01/07/25 10:02 100 MG Laboratory Results Laboratory Tests 01/03/25 05:40 Urinalysis Test 01/02/25 00:30 Urine Color Yellow (Yellow) Urine Clarity Turbid (Clear) H Urine pH 5.5 (5.0-9.0) Urine Specific [place] 1.022 (1.001-1.035) Urine Protein Trace (Negative) H Urine Ketones Negative (Negative) Urine Blood Negative /uL (Negative) Urine Nitrite Negative (Negative) Urine Bilirubin Negative (Negative) Urine Urobilinogen 2 mg/dL (Negative) H Urine Leukocyte Esterase 2+ /uL (Negative) Urine RBC 23 /hpf (0 - 4) Urine Microscopic WBC 5 /HPF (0-5) Urine Squamous Epithelial Cells Few /hpf (<5) Urine Bacteria None seen /hpf (None Seen) Urine Mucus Few (None Seen) Urine Yeast (Budding) Many /hpf (None Seen) Urine Glucose 4+ mg/dL (Normal) H Assessment/Plan Assessment/Plan Left ankle fracture Epilepsy Hypertension Dyslipidemia Type 2 diabetes UTI Plan Orthopedic consult Scheduled for surgery tomorrow Lovenox Accu-Cheks Resume the home medications Monitor closely Full code Pain control with the [place] and morphine p.r.n. Resume Dilantin which she takes at home for seizures Rocephin for UTI 01/03/2025: Start Lantus 10 units daily Accu-Cheks Pain management as needed Order physical therapy evaluation Consult social worker health services to arrange SNF for rehab Monitor closely Continue Rocephin for UTI Continue Dilantin for seizures Monitor closely 01/04/25: Continue pain management Add Flexeril prn PT Arrange SNF for rehab 01/06/2025: Continue the current regimen Continue Lantus Blood sugar is better controlled Discharge to SNF once a bed is available 01/07/2025: The patient is doing well ambulating with physical therapy She is waiting for her to be discharged to a [facility] facility for rehab Blood glucose is high: Increase Lantus to 15 units Plan discussed with: Patient Date of Service: Jan 07, 2025 Billing Provider: ANA MANZANARES MD Common Visit Codes: NOT BILLABLE ANA MANZANARES MD Jan 07, 2025 14:07
[2025-01-07] MEDS: INSULIN LANTUS (GLARGINE) 1 /0.01ml (100units/ml) SC SCH (21:38)
[2025-01-08] VITALS (8 sets, daily range): BP systolic 102–120; BP diastolic 70–77; PULSE 75–103; RESP 14–20; TEMP 97.4–98.9; O2SAT 94–97
--- NOTE | 2025-01-08 12:57 | DVHPN2 ---
Subjective Awaiting SNF placement for rehab c/o anxiety Changes from previous H/P or p: Changes Eyes: No Pain, No Vision change, No Conjunctivae inflammation, No Eyelid inflammation, No Other, No Redness ENT: No Ear pain, No Ear discharge, No Nose pain, No Nose discharge, No Nose congestion, No Mouth pain, No Mouth swelling, No Throat pain, No Throat swelling, No Other Cardiovascular: No Chest Pain, No Palpitations, No Orthopnea, No Paroxysmal Noc. Dyspnea, No Edema, No Lt Headedness, No Other Respiratory: No Cough, No Dry, No Shortness of breath, No SOB with excertion, No Wheezing, No Hemoptysis, No Pleuritic Pain, No Sputum, No Other Gastrointestinal: No Nausea, No Vomiting, No Abdominal Pain, No Diarrhea, No Constipation, No Melena, No Hematochezia, No Other Genitourinary: No Dysuria, No Frequency, No Incontinence, No Hematuria, No Retention, No Other Musculoskeletal: other (left leg pain); No neck pain, No shoulder pain, No arm pain, No back pain, No hand pain, No leg pain, No foot pain Skin: No Rash, No Lesions, No Jaundice, No Bruising, No Other Objective Vitals Vital Signs Date Time Temp Pulse Resp B/P (MAP) Pulse Ox O2 Delivery O2 Flow Rate FiO2 01/08/25 08:52 98.4 86 14 102/76 (85) 97 98.4 01/08/25 07:55 Room Air* 0 N/A Nasal Cannula* Intake/Output Intake and Output 01/08/25 07:00 Intake Total 1250 ml Output Total 700 ml Balance 550 ml Intake Oral 1200 ml IV Total 50 ml Output Urine Total 700 ml # Voids 3 General Appearance: Alert, Oriented X3, Cooperative, No acute distress Lungs: Clear to auscultation, Normal air movement Cardiovascular: Regular rate, Normal S1, Normal S2, No murmurs Abdomen: Normal bowel sounds, Soft, No tenderness Extremities: No edema Medications Current Medications Medications Dose Ordered Sig/Gregg Route Start Time Stop Time Status Last Admin Dose Admin Ceftriaxone Sodium 50 ml @ 100 mls/hr DAILY@09 IV 01/02/25 09:00 01/08/25 09:45 100 MLS/HR Diagnostic Test (Pha) 1 strip ACHS 01/01/25 22:00 01/08/25 11:30 1 STRIP Insulin Human Regular HS SC 01/01/25 22:00 01/07/25 21:37 4 UNITS Insulin Human Regular AC SC 01/02/25 07:00 01/08/25 12:25 6 UNITS Dextrose 50 ml UD PRN IV 01/01/25 21:00 Acetaminophen/ Hydrocodone Bitart 1 tab Q4HP PRN PO 01/01/25 21:00 01/08/25 09:52 1 TAB Ondansetron HCl 4 mg Q4HP PRN IV 01/01/25 21:00 01/03/25 09:20 4 MG Docusate Sodium 100 mg BIDPRN PRN PO 01/01/25 21:00 Enoxaparin Sodium 40 mg DAILY SC 01/02/25 10:00 01/08/25 09:46 40 MG Acetaminophen 650 mg Q6HP PRN PO 01/01/25 21:00 01/03/25 15:30 650 MG Nitroglycerin 0.4 mg Q5MINP PRN SL 01/01/25 23:15 Morphine Sulfate 2 mg Q30M PRN IV 01/01/25 23:15 Morphine Sulfate 2 mg Q4HPRN PRN IV 01/02/25 12:00 01/07/25 23:46 2 MG Cyclobenzaprine HCl 5 mg Q8HPRN PRN PO 01/04/25 11:15 01/08/25 04:01 5 MG Phenytoin Sodium 100 mg Q12HR PO 01/06/25 10:05 01/08/25 09:46 100 MG Insulin Glargine 15 units HS SC 01/07/25 22:00 01/07/25 21:38 15 UNITS Laboratory Results Laboratory Tests 01/03/25 05:40 Urinalysis Test 01/02/25 00:30 Urine Color Yellow (Yellow) Urine Clarity Turbid (Clear) H Urine pH 5.5 (5.0-9.0) Urine Specific [place] 1.022 (1.001-1.035) Urine Protein Trace (Negative) H Urine Ketones Negative (Negative) Urine Blood Negative /uL (Negative) Urine Nitrite Negative (Negative) Urine Bilirubin Negative (Negative) Urine Urobilinogen 2 mg/dL (Negative) H Urine Leukocyte Esterase 2+ /uL (Negative) Urine RBC 23 /hpf (0 - 4) Urine Microscopic WBC 5 /HPF (0-5) Urine Squamous Epithelial Cells Few /hpf (<5) Urine Bacteria None seen /hpf (None Seen) Urine Mucus Few (None Seen) Urine Yeast (Budding) Many /hpf (None Seen) Urine Glucose 4+ mg/dL (Normal) H Assessment/Plan Assessment/Plan Left ankle fracture Epilepsy Hypertension Dyslipidemia Type 2 diabetes UTI Plan Orthopedic consult Scheduled for surgery tomorrow Lovenox Accu-Cheks Resume the home medications Monitor closely Full code Pain control with the [place] and morphine p.r.n. Resume Dilantin which she takes at home for seizures Rocephin for UTI 01/03/2025: Start Lantus 10 units daily Accu-Cheks Pain management as needed Order physical therapy evaluation Consult manager social responsibility to arrange SNF for rehab Monitor closely Continue Rocephin for UTI Continue Dilantin for seizures Monitor closely 01/04/25: Continue pain management Add Flexeril prn PT Arrange SNF for rehab 01/06/2025: Continue the current regimen Continue Lantus Blood sugar is better controlled Discharge to SNF once a bed is available 01/07/2025: The patient is doing well ambulating with physical therapy She is waiting for her to be [facility] Blood glucose is high: Increase Lantus to 15 units 01/08/2025: Resume the home medications Xanax p.r.n. anxiety Fluoxetine Atenolol Levothyroxine Lipitor Hold benazepril due to low blood pressure Hold hydroxyzine and amitriptyline due to significant possible side effects Continue Dilantin SNF once a bed is available Add metformin 500 mg twice a day Plan discussed with: Patient My Orders Orders - ANA MANZANARES MD Procedure Category Date Status Time Insulin Lantus PHA 01/07/25 In Process (Glargine) (Lantus) 22:00 Date of Service: Jan 08, 2025 Billing Provider: ANA MANZANARES MD Common Visit Codes: NOT BILLABLE ANA MANZANARES MD Jan 08, 2025 12:57
[2025-01-08] MEDS ORDERED: ALPRAZolam 0.25 MG TAB PO PRN (13:00)
[2025-01-08] MEDS: FLUoxetine HCL 20 MG CAP PO ONE (16:21)
[2025-01-08] MEDS: LEVOTHYROXINE SODIUM 50 MCG TAB PO ONE (16:21)
[2025-01-08] MEDS: ATENOLOL 25 MG TAB PO ONE (16:22)
[2025-01-08] MEDS: metFORMIN HYDROCHLORIDE 500 MG TAB PO SCH (16:53)
[2025-01-08] MEDS: ATORVASTATIN 20 MG TAB PO SCH (21:15)
[2025-01-09 01:00] VITALS: BP 97/54; PULSE 78; RESP 18; TEMP 97.6; O2SAT 94
[2025-01-09 05:00] VITALS: BP 119/68; PULSE 82; RESP 17; TEMP 97.7; O2SAT 95
[2025-01-09] MEDS: LEVOTHYROXINE SODIUM 50 MCG TAB PO SCH (06:10)
[2025-01-09 08:00] VITALS: PULSE 78; RESP 16
[2025-01-09] MEDS: ALBUMIN 5% 250 ML IV ONE (08:42)
[2025-01-09] MEDS: SUCCINYLCHOLINE CHLORIDE 20 MG/ML 10ML VIAL IV ONE (08:42)
[2025-01-09] MEDS: METOCLOPRAMIDE HCL 5MG/ml INJ 2ml VIAL IV ONE (08:43)
[2025-01-09 09:01] VITALS: BP 118/60; PULSE 78; RESP 16; TEMP 98.6; O2SAT 97
[2025-01-09] MEDS: FLUoxetine HCL 20 MG CAP PO SCH (09:28)
[2025-01-09] MEDS: ATENOLOL 25 MG TAB PO SCH (09:28)
[2025-01-09 11:21] LABS: Basophils # (auto) 0.2 10 ^3/uL (0-0.2); Basophils % (auto) 1.2 % (0.0-2.0); Hemoglobin 11.8 g/dL (12.2-16.2); Monocytes # (auto) 1.2 10 ^3/uL (0-1.3); Neutrophils # (auto) 9.2 10 ^3/uL (1.6-8.6); Red Cell Distribution Width 12.9 % (11.8-14.3)
[2025-01-09 11:23] LABS: Eosinophils # (auto) 0.4 10 ^3/uL (0-0.8); Eosinophils % (auto) 2.9 % (0.0-7.0); Hematocrit 34.6 % (36.0-46.0); Lymphocytes # (auto) 2.8 10 ^3/uL (0.4-5.4); Lymphocytes % (auto) 20.6 % (10.0-50.0); Mean Corpuscular Hemoglobin 31.7 pg (28.0-32.0); Mean Corpuscular Hgb Conc. 34.1 g/dL (32.0-36.0); Mean Corpuscular Volume 92.9 fL (80.0-100.0); Monocytes % (auto) 8.5 % (0.0-12.0); Neutrophils % (auto) 66.8 % (37.0-80.0); Nucleated Red Blood Cells % 0.1 %; Platelet Count (auto) 548 10^3/uL (140-450); Red Blood Cells 3.73 10^6/uL (4.0-5.20); White Blood Cell 13.7 10^3/uL (4.4-10.8)
--- NOTE | 2025-01-09 11:30 | DVHPN2 ---
Subjective Awaiting SNF placement for rehab No new complaints Changes from previous H/P or p: No Changes Eyes: No Pain, No Vision change, No Conjunctivae inflammation, No Eyelid inflammation, No Other, No Redness ENT: No Ear pain, No Ear discharge, No Nose pain, No Nose discharge, No Nose congestion, No Mouth pain, No Mouth swelling, No Throat pain, No Throat swelling, No Other Cardiovascular: No Chest Pain, No Palpitations, No Orthopnea, No Paroxysmal Noc. Dyspnea, No Edema, No Lt Headedness, No Other Respiratory: No Cough, No Dry, No Shortness of breath, No SOB with excertion, No Wheezing, No Hemoptysis, No Pleuritic Pain, No Sputum, No Other Gastrointestinal: No Nausea, No Vomiting, No Abdominal Pain, No Diarrhea, No Constipation, No Melena, No Hematochezia, No Other Genitourinary: No Dysuria, No Frequency, No Incontinence, No Hematuria, No Retention, No Other Musculoskeletal: other (left leg pain); No neck pain, No shoulder pain, No arm pain, No back pain, No hand pain, No leg pain, No foot pain Skin: No Rash, No Lesions, No Jaundice, No Bruising, No Other Objective Vitals Vital Signs Date Time Temp Pulse Resp B/P (MAP) Pulse Ox O2 Delivery O2 Flow Rate FiO2 01/09/25 09:28 78 118/60 01/09/25 09:01 98.6 16 97 98.6 01/09/25 08:00 Room Air* 0 N/A Nasal Cannula* Intake/Output Intake and Output 01/09/25 07:00 Intake Total 1500 ml Output Total 800 ml Balance 700 ml Intake Oral 1450 ml IV Total 50 ml Output Urine Total 800 ml # Voids 9 General Appearance: Alert, Oriented X3, Cooperative, No acute distress Lungs: Clear to auscultation, Normal air movement Cardiovascular: Regular rate, Normal S1, Normal S2, No murmurs Abdomen: Normal bowel sounds, Soft, No tenderness Extremities: No edema Medications Current Medications Medications Dose Ordered Sig/Gregg Route Start Time Stop Time Status Last Admin Dose Admin Diagnostic Test (Pha) 1 strip ACHS 01/01/25 22:00 01/09/25 06:11 1 STRIP Insulin Human Regular HS SC 01/01/25 22:00 01/08/25 22:17 3 UNITS Insulin Human Regular AC SC 01/02/25 07:00 01/09/25 06:12 6 UNITS Dextrose 50 ml UD PRN IV 01/01/25 21:00 Acetaminophen/ Hydrocodone Bitart 1 tab Q4HP PRN PO 01/01/25 21:00 01/09/25 00:58 1 TAB Ondansetron HCl 4 mg Q4HP PRN IV 01/01/25 21:00 01/03/25 09:20 4 MG Docusate Sodium 100 mg BIDPRN PRN PO 01/01/25 21:00 Enoxaparin Sodium 40 mg DAILY SC 01/02/25 10:00 01/09/25 09:29 40 MG Acetaminophen 650 mg Q6HP PRN PO 01/01/25 21:00 01/03/25 15:30 650 MG Nitroglycerin 0.4 mg Q5MINP PRN SL 01/01/25 23:15 Morphine Sulfate 2 mg Q30M PRN IV 01/01/25 23:15 Morphine Sulfate 2 mg Q4HPRN PRN IV 01/02/25 12:00 01/09/25 05:58 2 MG Cyclobenzaprine HCl 5 mg Q8HPRN PRN PO 01/04/25 11:15 01/09/25 09:36 5 MG Phenytoin Sodium 100 mg Q12HR PO 01/06/25 10:05 01/09/25 09:28 100 MG Atorvastatin Calcium 40 mg HS PO 01/08/25 22:00 01/08/25 21:15 40 MG Levothyroxine Sodium 50 mcg QAM@0600 PO 01/09/25 06:00 01/09/25 06:10 50 MCG Alprazolam 0.25 mg Q8HP PRN PO 01/08/25 13:00 Atenolol 25 mg DAILY PO 01/09/25 10:00 01/09/25 09:28 25 MG Fluoxetine HCl 20 mg DAILY PO 01/09/25 10:00 01/09/25 09:28 20 MG Metformin HCl 500 mg BIDWM PO 01/08/25 18:00 01/09/25 08:40 500 MG Insulin Glargine 10 units BID SC 01/09/25 22:00 Laboratory Results Laboratory Tests 01/09/25 11:07 Chemistry Test 01/09/25 11:07 Calcium Level Pending Magnesium Level Pending Urinalysis Test 01/02/25 00:30 Urine Color Yellow (Yellow) Urine Clarity Turbid (Clear) H Urine pH 5.5 (5.0-9.0) Urine Specific [place] 1.022 (1.001-1.035) Urine Protein Trace (Negative) H Urine Ketones Negative (Negative) Urine Blood Negative /uL (Negative) Urine Nitrite Negative (Negative) Urine Bilirubin Negative (Negative) Urine Urobilinogen 2 mg/dL (Negative) H Urine Leukocyte Esterase 2+ /uL (Negative) Urine RBC 23 /hpf (0 - 4) Urine Microscopic WBC 5 /HPF (0-5) Urine Squamous Epithelial Cells Few /hpf (<5) Urine Bacteria None seen /hpf (None Seen) Urine Mucus Few (None Seen) Urine Yeast (Budding) Many /hpf (None Seen) Urine Glucose 4+ mg/dL (Normal) H Assessment/Plan Assessment/Plan Left ankle fracture Epilepsy Hypertension Dyslipidemia Type 2 diabetes UTI Plan Orthopedic consult Scheduled for surgery tomorrow Lovenox Accu-Cheks Resume the home medications Monitor closely Full code Pain control with the [place] and morphine p.r.n. Resume Dilantin which she takes at home for seizures Rocephin for UTI 01/03/2025: Start Lantus 10 units daily Accu-Cheks Pain management as needed Order physical therapy evaluation Consult criminal justice social worker to arrange SNF for rehab Monitor closely Continue Rocephin for UTI Continue Dilantin for seizures Monitor closely 01/04/25: Continue pain management Add Flexeril prn PT Arrange SNF for rehab 01/06/2025: Continue the current regimen Continue Lantus Blood sugar is better controlled Discharge to SNF once a bed is available 01/07/2025: The patient is doing well ambulating with physical therapy She is waiting for her to be discharged to a [facility] facility for rehab Blood glucose is high: Increase Lantus to 15 units 01/08/2025: Resume the home medications Xanax p.r.n. anxiety Fluoxetine Atenolol Levothyroxine Lipitor Hold benazepril due to low blood pressure Hold hydroxyzine and amitriptyline due to significant possible side effects Continue Dilantin SNF once a bed is available Add metformin 500 mg twice a day 01/09/2025: Continue current management Continue physical therapy Sent to SNF once a bed is available Plan discussed with: Patient My Orders Orders - ANA MANZANARES MD Procedure Category Date Status Time Atorvastatin (Lipitor) PHA 01/08/25 In Process 22:00 Levothyroxine Tablet PHA 01/09/25 In Process (Synthroid Tablet) 06:00 Alprazolam Tablet PHA 01/08/25 In Process (Xanax Tablet) 13:00 Atenolol Tablet PHA 01/09/25 In Process (Tenormin Tablet) 10:00 Fluoxetine Capsule PHA 01/09/25 In Process (Prozac Capsule) 10:00 Metformin PHA 01/08/25 In Process Hydrochloride 18:00 Electrocardigram EKG 01/08/25 Logged 14:17 Insulin Lantus PHA 01/09/25 In Process (Glargine) (Lantus) 22:00 Basic Metabolic Panel LAB 01/09/25 In Process 10:11 Magnesium LAB 01/09/25 In Process 10:11 Date of Service: Jan 09, 2025 Billing Provider: ANA MANZANARES MD Common Visit Codes: NOT BILLABLE ANA MANZANARES MD Jan 09, 2025 11:30
[2025-01-09 11:32] LABS: Chloride 102 mmol/L (98-107); Potassium 4.1 mmol/L (3.5-5.1)
[2025-01-09 11:33] LABS: Anion Gap 9 (5-15); Calcium 9.9 mg/dL (8.7-10.4); Carbon Dioxide 23 mmol/L (20-31); Sodium 134 mmol/L (136-145)
[2025-01-09 11:39] LABS: BUN/Creatinine Ratio 27.3 (10.0-20.0); Blood Urea Nitrogen 24 mg/dL (9-23); Glucose 175 mg/dL (74-106); Magnesium 1.6 mg/dL (1.6-2.6)
--- NOTE | 2025-01-09 12:08 | ECG ---
[facility] Test Date: 2025-01-08 Test Time: 11:36:11 Pat Name: ROSEMARIE MORA Department: Respiratoy Room: [address] [place] [address] 3 Gender: F [employer]: : 1945 Requested By: ANA MANZANARES Order Number: [id number] Reading MD: Gerald Bañuleos Measurements Intervals [place] Rate: 103 P: 64 LA: 153 QRS: -11 QRSD: 84 T: 35 QT: 343 QTc: 449 Interpretive Statements Sinus tachycardia Low voltage, precordial leads Electronically Signed On 01-10-2025 18:13:23 PDT by Gerald Bañuelos Please click the below link to view image of tracing.
[2025-01-09 13:00] VITALS: BP 123/59; PULSE 61; RESP 16; TEMP 98.3; O2SAT 97
[2025-01-09 17:06] VITALS: BP 148/55; PULSE 70; RESP 20; TEMP 98.3; O2SAT 96
[2025-01-09] MEDS ORDERED: INSULIN LANTUS (GLARGINE) 1 /0.01ml (100units/ml) SC SCH (22:00)
== END 2025-01-09 17:35 | DRG 493 ==
LOC: EDBD 15:43 → ER 15:43 → EDUNIT# 15:43 → OVERFLOW 23:01 → TELE-EAST 01-02 12:00
PROVIDERS: ADMIT Internal Medicine Geriatric Medicine; ATTEND Internal Medicine Geriatric Medicine
PROC: 0QSK04Z Reposition Left Fibula with Internal Fixation Device, Open Approach (ICD-10-PCS; 2025-01-03)
PROC: 0QSH04Z Reposition Left Tibia with Internal Fixation Device, Open Approach (ICD-10-PCS; 2025-01-03)
PROC: 0SSG04Z Reposition Left Ankle Joint with Internal Fixation Device, Open Approach (ICD-10-PCS; principal; 2025-01-03 07:44)
DX: S82.852A Displaced trimalleolar fracture of left lower leg, initial encounter for closed fracture (principal); N39.0 Urinary tract infection, site not specified; G40.909 Epilepsy, unspecified, not intractable, without status epilepticus; E78.5 Hyperlipidemia, unspecified; E11.65 Type 2 diabetes mellitus with hyperglycemia; F41.9 Anxiety disorder, unspecified; M85.88 Other specified disorders of bone density and structure, other site; S93.432A Sprain of tibiofibular ligament of left ankle, initial encounter; I10 Essential (primary) hypertension; D72.829 Elevated white blood cell count, unspecified; Z79.899 Other long term (current) drug therapy; W18.39XA Other fall on same level, initial encounter; Y93.89 Activity, other specified; Y92.098 Other place in other non-institutional residence as the place of occurrence of the external cause; Y99.8 Other external cause status
CPT/HCPCS: 36415; 71045; 73600; 73610; 73700; 76000; 80048; 80053; 80061; 80185; 81001; 82962; 83036; 83735; 84443; 85025; 85610; 85730; 86850; 86900; 86901; 93005; 93306; 96365; 96375; 97110; 97116; 97163; 97530; G0378; J0131; J0330; J1815; J2250; J2405